=== PATIENT | male | born 1950 | race African-American/Black ===

== ENCOUNTER 2018-01-17 05:38 | Emergency (ER) | payer MEDICARE | END 2018-01-17 06:58 | disposition home or self-care (01) | LOC: ERS 05:38 | DX: H54.7 Unspecified visual loss (principal); I10 Essential (primary) hypertension; F17.210 Nicotine dependence, cigarettes, uncomplicated | CPT/HCPCS: 99283 ==

== ENCOUNTER 2018-06-04 06:01 | Inpatient (IN) | payer MEDICARE ==
[2018-06-04] MEDS ORDERED: Nitroglycerin 2% Ointment 1 INCH/1 GM Packet ONE (06:23)
[2018-06-04 06:43] LABS: #Basophils 0.1 thou/uL (0.0-0.2); #Eosinphils 0.2 thou/uL (0.0-0.7); #Lymphocytes 2.5 thou/uL (1.20-3.40); #Monocytes 0.9 thou/uL (0.11-0.59); #Neutrophils 2.9 thou/uL (1.40-6.50); %Basophils 1.4 % (0.0-1.0); %Eosinophils 2.4 % (0.0-10.0); %Lymphocytes 38.2 % (21.0-51.0); %Monocytes 13.2 % (0.0-10.0); %Neutrophils 44.8 % (42.0-75.0); Hemoglobin 13.4 g/dL (14.0-18.0); Mean Corpuscular HGB CONC 33.9 g/dL (32.0-36.0); Mean Corpuscular Hemoglobin 31.7 pg (27.0-31.0); Mean Corpuscular Volume 93.4 fL (78.0-98.0); Mean Platelet Volume 8.4 fL (7.4-10.4); Platelet Count 300 thou/uL (130-400); RBC Distribution Width 12.2 % (11.5-14.5); Red Blood Cell (RBC) Count 4.25 mill/uL (4.70-6.10); White Blood Cell (WBC) Count 6.4 thou/uL (4.8-10.8)
[2018-06-04] MEDS ORDERED: hydrALAZINE 20 MG/ML VIAL ONE ×2 (06:49→07:56)
[2018-06-04 07:05] LABS: ALT (SGPT) 9 U/L (8-55); AST (SGOT) 14 U/L (5-34); Alkaline Phosphatase 90 U/L (40-150); Anion Gap 12 mmol/L (10-20); BUN (Urea Nitrogen) 19 mg/dL (8.4-25.7); Bilirubin, Total 0.9 mg/dL (0.2-1.2); CK (CPK) 72 U/L (30-200); Calc. Creatinine Clearance 0 mL/min (70-130); Calcium 9.7 mg/dL (7.8-10.44); Carbon Dioxide 26 mmol/L (23-31); Chloride 108 mmol/L (98-107); Estimated GFR-MDRD 72; Globulin 2.7 g/dL (2.4-3.5); Glucose 88 mg/dL (80-115); Lipase 25 U/L (8-78); Protein, Total 6.7 g/dL (5.8-8.1); Sodium 142 mmol/L (136-145)
[2018-06-04 07:07] LABS: Acetaminophen Less than 6.0 mcg/mL (10.0-30.0); Alcohol Less than 10 mg/dL (Less than 10); CKMB 0.6 ng/mL (0-6.6); Salicylate Less than 8.0 mg/dL (15.0-30.0)
--- NOTE | 2018-06-04 07:57 | PDOC.FPRHP ---
- History of Present Illness Chief Complaint: left sided parasthesia/PARTIDA History of Present Illness: This is a 67 yo M who presents to the ED with left sided facial and extremity parasthesias. Patient presented with a BP of 230s/84 and a headache. Patient states his symptoms started at 0300 this morning and have been continuous since. The numbness persisted and began bother him again around 0530 this AM. The patient then drove himself to the ED. He also endorsed feeling numbness on the left lower face and ryne. Patient has been noncompliant with medications, he got tired of taking his bp meds so quit taking them 4-5 months ago. Denies dysarthria, weakness, change in gait, or other stroke like symptoms. Denies numbness in left lower extremity. Patient denies chest pain, fever, NVD, or vision changes. PMH of stroke in 2009 which was treated at [facility]. ED Course: 20mg IV hydralazine, ASA 324mg, topical nitro, 500ml NS - Allergies/Adverse Reactions Allergies Allergy/AdvReac Type Severity Reaction Status Date / Time No Known Allergies Allergy Verified 06/04/18 09:01 - Home Medications Medication Instructions Recorded Confirmed Type Amlodipine [Norvasc] 10 mg PO DAILY #0 tab 02/05/16 06/04/18 Rx Lisinopril [Zestril] 10 mg PO DAILY #0 tab 02/05/16 06/04/18 Rx - History PMHx: HTN, stroke of unknown type in 2009 PSHx: hernia repair (1995), "operation on blood vessel that comes out of my head , from stroke" FHx: none Social: drinks socially, every week; daily marijuana use; "all kinds of shit" as far as drug use in the past, would not specify, tobacco - 50 pack year smoking hx - Review of Systems General: denies: fever/chills, weight/appetite/sleep changes, night sweats, fatigue Eyes: denies: eye pain, vision changes Respiratory: denies: cough, congestion, shortness of breath Cardiovascular: denies: chest pain, palpitation, edema Gastrointestinal: denies: nausea, vomiting, diarrhea, constipation, abdominal pain Genitourinary: denies: incontinence, dysuria, polyuria Skin: denies: rashes Neurological: reports: numbness. denies: syncope, seizure, weakness - Vital signs BP: 184/92 HR: 62 RR: 16 Tmax: 98.6 Pox: 100% on RA Wt: 58.97kg - Physical Exam Constitutional: NAD, awake, alert and oriented HEENT: normocephalic and atraumatic, PERRLA, EOMI, no scleral icterus, grossly normal vision, grossly normal hearing, MMM Neck: supple, FROM, trachea midline Chest: no-tender to palpation, no lesions Heart: RRR, normal S1/S2, no murmurs/rubs/gallops, pulses present, no edema Lungs: CTAB, no respiratory distress, good air movement Abdomen: soft, non-tender, bowel sounds present, no masses/distention Neurological: no focal deficit, CN II-XII intact -Neurological: sensation equal on both sides of the face, equal cork grinder strength bilaterally, mild decrease in strength with flexion of left upper extremity, equal strength at lower extremities lifting off of the bed Skin: no rash/lesions, capillary refill <2 seconds Psychiatric: normal mood and affect, good judgment and insight FMR H&P: Results - Labs Result Diagrams: 06/04/18 06:25 06/04/18 06:25 Lab results: WBC 6.4 thou/uL (4.8-10.8) 06/04/18 06:25 Hgb 13.4 g/dL (14.0-18.0) L 06/04/18 06:25 Hct 39.7 % (42.0-52.0) L 06/04/18 06:25 MCV 93.4 fL (78.0-98.0) 06/04/18 06:25 Plt Count 300 thou/uL (130-400) 06/04/18 06:25 Neutrophils % 44.8 % (42.0-75.0) 06/04/18 06:25 Sodium 142 mmol/L (136-145) 06/04/18 06:25 Potassium 4.0 mmol/L (3.5-5.1) 06/04/18 06:25 Chloride 108 mmol/L (98-107) H 06/04/18 06:25 Carbon Dioxide 26 mmol/L (23-31) 06/04/18 06:25 BUN 19 mg/dL (8.4-25.7) 06/04/18 06:25 Creatinine 1.23 mg/dL (0.7-1.3) 06/04/18 06:25 Glucose 88 mg/dL (80-115) 06/04/18 06:25 Calcium 9.7 mg/dL (7.8-10.44) 06/04/18 06:25 Total Bilirubin 0.9 mg/dL (0.2-1.2) 06/04/18 06:25 AST 14 U/L (5-34) 06/04/18 06:25 ALT 9 U/L (8-55) 06/04/18 06:25 Alkaline Phosphatase 90 U/L (40-150) 06/04/18 06:25 Creatine Kinase 72 U/L (30-200) 06/04/18 06:25 CK-MB (CK-2) 0.6 ng/mL (0-6.6) 06/04/18 06:25 B-Natriuretic Peptide 46.7 pg/mL (0-100) 06/04/18 06:25 Serum Total Protein 6.7 g/dL (5.8-8.1) 06/04/18 06:25 Albumin 4.0 g/dL (3.4-4.8) 06/04/18 06:25 Lipase 25 U/L (8-78) 06/04/18 06:25 FMR H&P: A/P - Problem List (1) Hypertensive urgency Current Visit: Yes Status: Acute Code(s): I16.0 - HYPERTENSIVE URGENCY (2) COPD (chronic obstructive pulmonary disease) Current Visit: No Status: Chronic (3) Hypertension Current Visit: No Status: Chronic Code(s): I10 - ESSENTIAL (PRIMARY) HYPERTENSION (4) Tobacco abuse Current Visit: No Status: Chronic Code(s): Z72.0 - TOBACCO USE - Plan Hypertensive Emergency - on admission in the ED 200+ SBP/ 84; patient given hydralazine in the ED - Will monitor BP and restart home meds of lisinopril and amlodipine - Will add labetalol PRN for SBP > 180 - Will add ASA daily and start a statin - FLP pending for AM - Will obtain MRI brain TIA 2/2 HTN Emergency - see above - Will consider consulting neurology pending MRI HTN - see above COPD - not in acute exacerbation - Will monitor resp status - Duoneb PRN DISPO: admit to stroke, monitor BPs Code: FULL VTE ppx: lovenox Case discussed with Dr. Saldaña FMR H&P: Upper Level - Pertinent history This is a 67yo M who comes in for evaulation of stroke-like symptoms. He states he woke up at three AM with parethesias of the left arm and it persisted until 0530 AM. He states he also felt numb on the L side of his face. Denies any motor or speech deficits. The patient was able to drive himself to the ED. Denies headache. States he had as stroke in 2009 and [facility], he thinks he had some sort of intravascular procedure done but is not quite sure. He has a 50 pack year smoking history and has not taken his BP meds for 5 months because he got tired of it. - Pertinent findings General: NAD, alert and oriented x3 HEENT: PERRLA, EOMI, normal sclera Neck: Supple. Full ROM. Heart/Cardiovascular System: No r/m/g. RRR. Cap refill < 3 seconds, good pulses in all extremities Lungs/Respiratory System: clear to auscultation bilaterally. No increased work of breathing. Room air. Abdomen/Gastro-Intestinal System: non-tender, normal bowel sounds, no masses, no organomegaly Extremeties: Warm extremities. No cyanosis or edema. Neuro: No gross deficits appreciated. CN 2-12 grossly intact. able to lift both legs off the bed. No facial droop or slurred speech. Equal cork grinder strength bilaterally. Slightly decreased strength in flexion of L upper extremity as opposed to the R, still able to flex against resistance. Psychiatry: Awake, Alert and cooperative with exam Skin/ Integumentory: No lesions, rashes, or ulcers - Plan Date/Time: 06/04/18 [id number] IJoshua MD, have evaluated this patient and agree with findings/plan as outlined by internal medicine doctor resident. Pertinent changes/additions are listed here. #HTN Emergency - first bp in 230s systolic - s/p hydralazine in the ED - restarted home meds, lisinopril, amlodipine - will wait to titrate up because patient has not taken them in 4-5 months - labetalol, hydralazine PRN #TIA - tiny rt lacunar infarct noted on MRI - on ASA, statin - echo, carotid doppler pending - Neurology consulted # Hx of COPD Diet: HH DVT PPX: lovenox fluids: none Dispo: 1 day pending neuro recs Addendum - Attending - Attending Attestation Date/Time: 06/04/18 1569 I personally evaluated the patient and discussed the management with Dr. Ponce I agree with the History, Examination, Assessment and Plan documented above with any addition or exceptions noted below.
--- NOTE | 2018-06-04 08:07 | CT ---
NONCONTRAST CT HEAD: DATE: 06/04/2018. HISTORY: Altered mental status, numbness and tingling to face and left arm. COMPARISON: 02/06/2016. FINDINGS: Again noted are areas of decreased attenuation in the periventricular white matter which is again non specific but likely reflective of chronic small-vessel ischemic changes which have not progressed fro m the prior study. There is no evidence of an acute cortical infarction, hemorrhage, mass effect, or midline shift. Low-density area in the left external capsule is also likely attributable to chronic small-vessel ischemic changes and was present on prior exam. There is a cavum septum pellucidum et vergae. Ventricular system is normal in size, shape, and posit ion. Minimal scattered mucosal thickening is seen in the paranasal sinuses. Mastoid air cells are clear. Osseous structures are intact. CT of the head is stable from the prior study. IMPRESSION: 1. No acute intracranial abnormality is demonstrated. 2. Stable mild chronic small-vessel ischemic changes. POS: [facility]
[2018-06-04 08:13] LABS: Medtox Reader # READER 4
[2018-06-04 08:14] LABS: Amphetamine Not Detected (NotDetected); Barbiturates Screen Not Detected (NotDetected); Benzodiazepine Screen Not Detected (NotDetected); Cocaine Metabolite Screen Not Detected (NotDetected); Medtox Control Line Valid? VALID (VALID); Methadone Not Detected (NotDetected); Methamphetamine Not Detected (NotDetected); Opiate Screen Not Detected (NotDetected); Oxycodone Screen Not Detected (NotDetected); Phencyclidine (PCP) Not Detected (NotDetected); THC/Cannabinoid Screen Detected (NotDetected); Tricyclic Screen Not Detected (NotDetected)
[2018-06-04] MEDS ORDERED: hydrALAZINE 20 MG/ML VIAL SLOW IVP PRN (09:17)
--- NOTE | 2018-06-04 10:11 | RAD ---
CHEST ONE VIEW: History: Dyspnea. Comparison: 07-29-11 FINDINGS: Cardiac silhouette is magnified and enlarged. Pulmonary vasculature unremarkable. Mediastinum is midl ine with aortic calcification. No confluent airspace consolidation or evidence of pneumothorax. Cardi ac monitor leads overlie the chest. IMPRESSION: 1. Cardiomegaly, stable. 2. Atherosclerosis. POS: [facility]
[2018-06-04 11:02] LABS: Troponin I Less than 0.010 ng/mL (< 0.028)
[2018-06-04] MEDS ORDERED: Acetaminophen 325 MG TAB PO PRN (14:43)
[2018-06-04 15:00] LABS: Troponin I 0.021 ng/mL (< 0.028)
[2018-06-04] MEDS: Nicotine 21 MG PATCH TD SCH (15:00)
--- NOTE | 2018-06-04 15:20 | MRI ---
NONCONTRAST MRI OF BRAIN: DATE: 06/04/2018. HISTORY: Left-sided weakness. COMPARISON: Noncontrast CT head on 06/04/2018. FINDINGS: There is a punctate focus of restricted diffusion within the right thalamus suggesting an acute tiny lacunar infarction I the right thalamus. No additional acute infarction is visualized. There is inc reased FLAIR and T2 weighted signal intensity in the periventricular white matter which is nonspecifi c but likely reflective of chronic small-vessel ischemic changes. There is a cavum septum pellucidum et vergae which is a normal variant. The ventricular system is no rmal in size, shape, and position for the degree of sulcal atrophy. There is mild cerebral volume lo ss not unexpected for the patient's age. There is motion on the T2 weighted images, but there are grossly appropriate flow voids noted at the base of the brain. There is an increased T2 weighted signal intensity cystic-appearing lesion seen in the subcutaneous s oft tissues adjacent to the most proximal aspect of the right nasal bone. This was also seen on prio r CT exam and also appeared to have been present on the priori CT of the head on 02/06/2016. This is d ifficult to definitively characterize but this could potentially represent a sebaceous cyst. Clinica l correlation is recommended. Minimal mucosal thickening seen in the ethmoidal air cells in each sphenoid sinus. Orbits and skull base have a grossly normal appearance. IMPRESSION: 1. Tiny acute lacunar infection right thalamus. No additional acute infarction is seen. 2. Chronic small-vessel ischemic changes and cerebral volume loss. 3. Subcutaneous cystic-appearing lesion adjacent to the right nasal bone. The exact etiology is unc ertain, but this was present on a prior CT exam on 02/06/2016 and could potentially represent a sebaceo us cyst, but clinical correlation is recommended. 4. Mild sinus disease. 5. Prominent degenerative changes of the visualized upper cervical spine. POS: [facility]
[2018-06-04] MEDS: Atorvastatin Calcium 40 MG TAB PO SCH (20:40)
--- NOTE | 2018-06-04 20:50 | ULT ---
CAROTID ULTRASOUND: 05/25/18 HISTORY: Stroke. COMPARISON: None. TECHNIQUE: Pham scale, color flow, doppler imaging with spectral waveform analysis is performed in the carotid a nd vertebral arteries. FINDINGS: RIGHT CAROTID: There is intimal thickness of the common carotid artery measuring 0.1 cm. There is calcified plaque i n the distal right common carotid artery and carotid bifurcation/proximal internal carotid artery. P eak systolic velocity of the common carotid artery is 150.4 cm/s. Peak systolic velocity of the inter nal carotid artery is 151.5 cm/s. Systolic to ICA and CCA ratio is 1.0. LEFT CAROTID: There is intimal thickness of the common carotid artery measuring 0.14 cm. There is calcified plaque in the left carotid bifurcation. Peak systolic velocity of the common carotid artery is 124.0 cm/s. Peak systolic velocity of the internal carotid artery is 112.1 cm/s. Systolic to ICA and CCA ratio is 0.9. Antegrade flow in both vertebral arteries. IMPRESSION: Elevated velocities involving the right carotid artery suggesting moderate (50-69%) stenosis. Better interrogation with CT angiogram of the neck is recommended. POS: [facility]
[2018-06-05 05:13] LABS: #Eosinphils 0.1 thou/uL (0.0-0.7); #Lymphocytes 1.9 thou/uL (1.20-3.40); #Monocytes 0.8 thou/uL (0.11-0.59); #Neutrophils 4.1 thou/uL (1.40-6.50); %Basophils 0.7 % (0.0-1.0); %Eosinophils 1.4 % (0.0-10.0); %Lymphocytes 27.7 % (21.0-51.0); %Monocytes 11.6 % (0.0-10.0); %Neutrophils 58.6 % (42.0-75.0); Hemoglobin 11.9 g/dL (14.0-18.0); Mean Corpuscular HGB CONC 33.6 g/dL (32.0-36.0); Mean Corpuscular Hemoglobin 31.4 pg (27.0-31.0); Mean Corpuscular Volume 93.4 fL (78.0-98.0); Platelet Count 205 thou/uL (130-400); RBC Distribution Width 12.3 % (11.5-14.5)
[2018-06-05 05:27] LABS: Anion Gap 11 mmol/L (10-20); BUN (Urea Nitrogen) 16 mg/dL (8.4-25.7); Calc. Creatinine Clearance 59 mL/min (70-130); Calcium 9.2 mg/dL (7.8-10.44); Carbon Dioxide 24 mmol/L (23-31); Chloride 108 mmol/L (98-107); Cholesterol 211 mg/dl (< 200 Desired); Estimated GFR-MDRD 87; Glucose 78 mg/dL (80-115); HDL Cholesterol 70 mg/dL (>60 Neg Risk); LDL Cholesterol, Calculated 131 mg/dL; Sodium 139 mmol/L (136-145); Triglycerides 48 mg/dL (Less than 150)
--- NOTE | 2018-06-05 06:18 | PDOC.FM ---
Addendum entered and electronically signed by Dania Ponce MD 06/05/18 07:55 : Will restart lisinopril and amlodipine on 06/06 and have PRNs available. Original Note: - Subjective Subjective: No events overnight. Patient has no complaints or concerns this morning. No recurrence of paresthesias. Informed patient of MRI and patient acknowledged understanding. Patient denies numbness, SOB, chest pain, palpitations, weakness or vision changes. - Objective Vital Signs & Weight: Vital Signs (12 hours) Temp Pulse Resp BP Pulse Ox 06/05/18 03:17 98.9 F 72 16 154/87 H 98 06/04/18 23:37 98.9 F 70 16 141/84 H 98 06/04/18 19:10 98.7 F 69 18 165/84 H 98 Weight Weight 58.776 kg I&O: 06/03/18 06/04/18 06/05/18 06:59 06:59 06:59 Intake Total 960 Balance 960 Result Diagrams: 06/05/18 04:15 06/05/18 04:15 Phys Exam - Physical Examination Constitutional: NAD HEENT: PERRLA, moist MMs, sclera anicteric Neck: no JVD, supple, full ROM Respiratory: clear to auscultation bilateral Cardiovascular: RRR, no significant murmur, no rub Gastrointestinal: soft, non-tender, no distention, positive bowel sounds Musculoskeletal: no edema Neurological: non-focal, normal sensation, moves all 4 limbs Psychiatric: normal affect, A&O x 3 Skin: no rash Dx/Plan (1) CVA (cerebral vascular accident) Code(s): I63.9 - CEREBRAL INFARCTION, UNSPECIFIED Status: Acute (2) Hypertensive urgency Code(s): I16.0 - HYPERTENSIVE URGENCY Status: Acute (3) COPD (chronic obstructive pulmonary disease) Status: Chronic (4) Hypertension Code(s): I10 - ESSENTIAL (PRIMARY) HYPERTENSION Status: Chronic (5) Tobacco abuse Code(s): Z72.0 - TOBACCO USE Status: Chronic - Plan Plan: Hypertensive Emergency - on admission in the ED 200+ SBP/ 84; patient given hydralazine in the ED - BPs improved; ranging 141-165/80-90s - Will monitor BP and restart home meds of lisinopril and amlodipine - Will add labetalol/hydralazine PRN for SBP > 180 - ASA and statin daily - cholesterol: 211, HDL 70, LDL 13; ASCVD risk 23% - Will obtain MRI brain CVA 2/2 HTN Emergency - MRI showed small lacunar infarct right thalamus; sebaceous cyst next to right nasal bone - Doppler showed intimal thickness in both the left and right carotids; Will obtain CTA of head and neck - Neurology consulted; appreciate recs - see above for additional plans HTN - see above COPD - not in acute exacerbation - Will monitor resp status - Duoneb PRN DISPO: admit to stroke, monitor BPs Code: chem only - no CPR or intubation VTE ppx: lovenox Addendum - Attending - Attending Attestation Date/Time: 06/05/18 1151 I personally evaluated the patient and discussed the management with Dr. Ponce I agree with the History, Examination, Assessment and Plan documented above with any addition or exceptions noted below. MRI finding cyst not new finding appears stable, lacunar infarct noted Restarted lisinopril permissive HTN and consult with Vascular Surgery regard carotid artery stenosis.
[2018-06-05] MEDS: Labetalol HCl 100 MG/20 ML VIAL SLOW IVP PRN ×3 (07:54→16:22)
[2018-06-05] MEDS ORDERED: Lisinopril 10 MG TAB PO SCH ×3 (09:00→19:15)
[2018-06-05] MEDS ORDERED: Amlodipine 10 MG TAB PO SCH ×2 (09:00→17:30)
[2018-06-05] MEDS: Enoxaparin Sodium 30 MG/0.3 ML SYRINGE SC SCH (09:33)
[2018-06-05] MEDS: Aspirin 325 mg Enteric Coated Tablet PO SCH (09:33)
--- NOTE | 2018-06-05 10:26 | CT ---
CT ARTERIOGRAM NECK WITH IV CONTRAST AND 3D MIP IMAGING CT ARTERIOGRAM HEAD WITH IV COTNRAST AND 3D MIP IMAGING CT BRAIN WITH AND WITHOUT IV COTNRAST: HISTORY: CVA. Abnormal sonogram. Vascular disease. FINDINGS: There is no evidence of acute intracranial hemorrhage or infarct. Large cavum septum pellucidum is a gain demonstrated. Projecting leftward from the anterior falx is a mostly calcified 0.7 cm rounded lesion slightly effac ing the medial aspect of the left frontal lobe. This has the appearance of a small hemangioma and is stable on exams dating back to 2011. Chronic ischemic small-vessel disease is also stable. No abno rmal areas of intracranial contrast enhancement. Fatty lesion at the bridge of the nose is partially visualized. Normal branching of the great vessels at the aortic arch. Moderate calcification. Good flow into ea ch carotid and vertebral system. On the right, there is calcified and noncalcified plaque at the carotid bifurcation. Focal narrowing at the origin of the right internal carotid artery results in stenosis estimated at 70%. Good flow distally. Intracranial arterial calcification. On the left, there is calcified and noncalcified plaque without significant carotid stenosis. Good flow intracranially into each cerebral and cerebellar system. IMPRESSION: 1. Atherosclerosis. Stenosis at the origin of the right internal carotid artery is estimated at 70% . 2. Chronic-type intracranial findings are stable. POS: [facility]
--- NOTE | 2018-06-05 13:14 | CON ---
DATE OF CONSULTATION: 06/05/2018 HISTORY OF PRESENT ILLNESS: Mr. Dixon is a 67-year-old gentleman who has chronic longstanding hypertension. He quit taking his blood pressure medicine and presented to the emergency room with a blood pressure in the 230s/80s. He had a headache. He also noted some tingling in his left hand and left lip. As part of his workup, he had a carotid ultrasound performed, which showed a right carotid peak systolic velocity in the 150 range. It was recommended that he have a CT angiogram performed, which they did. The radiologist's read is at 70% stenosis at the origin of the right internal carotid artery. By my measurements, it measures approximately 50%. On MRI of his brain, he has right thalamic punctate infarct. Currently, he is resting comfortably in bed. His symptoms have completely resolved with control of his blood pressure. PAST MEDICAL HISTORY: 1. Hypertension. 2. History of stroke in 2009, which was managed at [facility]. He says he had some sort of problem with a blood vessel in his head that was operated on. PAST SURGICAL HISTORY: 1. The above surgical procedure to his blood vessel in his head - this is unclear. 2. Hernia repair x2. SOCIAL HISTORY: He drinks socially. He uses marijuana every day. He smokes a pack of cigarettes a day. REVIEW OF SYSTEMS: A 10-point review of systems is performed, is negative except as above. PHYSICAL EXAMINATION: GENERAL: This is a well-developed, well-nourished male, resting comfortably in bed. VITAL SIGNS: Height 5 feet 3 inches, weight is 129 pounds, BSA is 1.62, temperature is 98.4, pulse is 63, blood pressure is 194/95. HEENT: Sclerae nonicteric. Pupils are equal, round bilaterally. NECK: Supple. He has soft bilateral carotid bruit. CHEST: Clear bilaterally. HEART: Rhythm is regular without murmur. ABDOMEN: Soft and nontender with no masses. EXTREMITIES: No edema. ASSESSMENT AND PLAN: A 67-year-old gentleman with a punctate infarct of his right thalamus. Symptoms have resolved. Ultrasound is consistent with a 50% to 69% stenosis. He has approximately a 50% stenosis by my measurement on the CT angiogram. I would recommend that he take an aspirin daily. He needs to stay on his blood pressure medicines and try to keep his blood pressure better controlled. I will see him back in the office in about 6 months and re-ultrasound his neck at that time. If he progresses, we can certainly offer him carotid endarterectomy in the future. Job ID: [id number]
[2018-06-05] MEDS: Nicotine 21 MG PATCH TD SCH (16:22)
[2018-06-05] MEDS ORDERED: hydrALAZINE 20 MG/ML VIAL SLOW IVP SCH (19:15)
[2018-06-05] MEDS: Atorvastatin Calcium 40 MG TAB PO SCH (20:11)
--- NOTE | 2018-06-05 20:17 | CON ---
DATE OF CONSULTATION: 06-05-18 CHIEF COMPLAINT: New onset CVA. HISTORY OF PRESENTING ILLNESS: The patient is a very pleasant 67-year-old man, who reports he stopped his blood pressure medications recently about 3 to 4 months ago, and he noted he developed the sudden onset numbness in the bottom of his left thumb and came quickly to the emergency room because he wanted to make sure he did not have a stroke. He did not experience dizziness or weakness or any other symptoms such as dysarthria or diplopia. No loss of consciousness or seizures were reported. No weakness was reported. PAST MEDICAL HISTORY: The patient has known hypertension and is supposed to be on lisinopril and amlodipine, which he discontinued about 3 to 4 months ago. The patient did have a previous history of stroke in 2009. He states he was admitted to the hospital and had some kind of surgery for blood vessel within the brain and it was not a carotid surgery. PAST SURGICAL HISTORY: The patient had hernia repair in 1995 and 2017 and his blood vessel surgery within the brain about 8 years ago. FAMILY HISTORY: Mother of a CVA at age 49. Father in his 70s from diabetes. He has 7 siblings, only 4 are alive. One sister from cancer, one sister from overdose of medications, and one sister had a brain aneurysm at age 56, but she is still alive. SOCIAL HISTORY: He is a smoker. He used drugs in the past. He smokes weed occasionally even now. He has occasional beer or whiskey, but not a regular alcoholic currently. REVIEW OF SYSTEMS: PULMONARY: Negative for any shortness of breath. GENERAL: Negative for any weight loss or weight gain. There was no fatigue. ENT: No hearing problems. OPHTHALMOLOGIC: Negative for any vision changes. CARDIOVASCULAR: No chest pain or palpitations. GASTROINTESTINAL: Negative for any diarrhea, constipation, or abdominal pain. GENITOURINARY: Negative for any bladder problem. SKIN: Negative for any rash or skin itching. NEUROLOGIC: Positive for numbness in the thumb area. LABORATORY DATA: Laboratory workup: He has a white count 7.0, hematocrit 35.5, hemoglobin 11.9, platelets 205. Chemistry; sodium 139, potassium 4.0, chloride 108, BUN is 16, creatinine 1.04, bicarb 24. Cholesterol 211, triglycerides 48, LDL 131, HDL 70, heart disease risk ratio 3. MRI of the brain showed an acute infarct in the right thalamus and it is a lacunar infarct. He has chronic small vessel ischemic changes and cerebral volume loss. Subcutaneous cystic appearing lesion adjacent to the right nasal bone and this could be more of a sebaceous cyst, and carotid Doppler study was completed and his Doppler showed elevated velocities in the right carotid artery indicating moderate 50% to 69% stenosis, and a CTA of the [place] of [place] showed no evidence of intracranial hemorrhage or infarct, and he has atherosclerosis projecting leftward from the anterior falx is a classified 0.7 mm lesion in the left frontal lobe appearing to be a small hemangioma and is stable since 2012. On the right, there is a calcified and noncalcified plaque of the carotid bifurcation, so he has a stenosis of the origin of the right ICA estimated at 70% and echocardiogram was also completed. His echocardiogram result shows EF of 45% to 50% and moderate concentric left ventricular hypertrophy. PHYSICAL EXAMINATION: VITAL SIGNS: Blood pressure was 194/95, pulse is 63, temperature 98.4, respiratory rate 16, and O2 sats 98%. GENERAL APPEARANCE: Well-built, well-nourished gentleman, appears comfortable. CHEST: Clear vesicular breathing. CARDIOVASCULAR: S1 and S2 heard. No murmurs. ABDOMEN: Soft and nontender. No organomegaly noted. NEUROLOGIC: Motor; bulk, normal and tone, normal. Strength 5/5 in upper and lower extremities. Higher intellectual functions; the patient is alert and oriented to time, place, and person, has appropriate conversation. Cranial nerves 2 through 12 normal except for left facial droop, which is very mild. Normal extraocular movements. Pupils are reactive and symmetric bilaterally. Normal sensation of face bilaterally and normal hearing to finger rub bilaterally. Tongue midline. No atrophy noted. Normal elevation of palate. Motor examination; bulk normal and tone normal. Strength 5/5 in upper and lower extremities in iliopsoas, hamstrings, quadriceps, ankle dorsiflexion, plantar flexion, deltoid, biceps, triceps, wrist extension, flexion, finger extension and flexion bilaterally. Sensory examination; normal to touch and proprioception. Cerebellar; normal [id number] and [id number]. Deep tendon reflexes were 2+ and no pronator drift was noted. Gait not tested. IMPRESSION: The patient is a 67-year-old man with right thalamic acute infarct likely due to hypertension. He has stopped taking his antihypertensive for the last 3 to 4 months. His current neurological examination is normal. 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 This needs to be evaluated further. RECOMMENDATIONS: Aspirin for stroke prophylaxis. Please consult Vascular Surgery for his carotid occlusion and call Neurology if you have any further questions. Job ID: [id number] MTDD
--- NOTE | 2018-06-06 06:29 | PDOC.FM ---
- Subjective Subjective: No events overnight. Patient reports feeling well this morning and ready to go home. Patient endorses numbness in the right thumb but denies numbness in the rest of the hand, arm or face. Denies any other stroke like symptoms. Denies chest pain, abdominal pain, NVD, LE swelling. - Objective Vital Signs & Weight: Vital Signs (12 hours) Temp Pulse Resp BP BP Pulse Ox 06/06/18 04:44 98.1 F 71 16 138/79 96 06/05/18 23:58 98.5 F 70 20 141/73 H 95 06/05/18 22:15 137/68 06/05/18 20:11 61 191/89 H 06/05/18 20:10 95 06/05/18 19:49 98.7 F 64 16 191/89 H 97 Weight Weight 58.776 kg I&O: 06/04/18 06/05/18 06/06/18 06:59 06:59 06:59 Intake Total 960 Balance 960 Result Diagrams: 06/05/18 04:15 06/05/18 04:15 Phys Exam - Physical Examination Constitutional: NAD HEENT: PERRLA, moist MMs, sclera anicteric Neck: full ROM Respiratory: clear to auscultation bilateral Cardiovascular: RRR, no significant murmur, no rub Gastrointestinal: soft, non-tender, no distention, positive bowel sounds Musculoskeletal: no edema Neurological: non-focal, moves all 4 limbs left > right thumb sensation Psychiatric: normal affect, A&O x 3 Skin: no rash Dx/Plan (1) CVA (cerebral vascular accident) Code(s): I63.9 - CEREBRAL INFARCTION, UNSPECIFIED Status: Acute (2) Hypertensive urgency Code(s): I16.0 - HYPERTENSIVE URGENCY Status: Acute (3) COPD (chronic obstructive pulmonary disease) Status: Chronic (4) Hypertension Code(s): I10 - ESSENTIAL (PRIMARY) HYPERTENSION Status: Chronic (5) Tobacco abuse Code(s): Z72.0 - TOBACCO USE Status: Chronic - Plan Plan: Hypertensive Emergency - on admission in the ED 200+ SBP/ 84; patient given hydralazine in the ED - BPs improved; ranging 138-141/70s this AM; overnight had some elevated BPs and was given labetalol and increased lisinopril dose. - Will monitor BP. Will start lisinopril at increased dosage. Will hold home amlodipine for now. - Will add labetalol PRN for SBP > 180 - ASA and statin daily - cholesterol: 211, HDL 70, LDL 13; ASCVD risk 23% CVA 2/2 HTN Emergency - MRI showed small lacunar infarct right thalamus; sebaceous cyst next to right nasal bone - Doppler showed intimal thickness in both the left and right carotids - CTA head and neck showed stenosis of 70% on the right; CV surg consulted at that point. CV surg reviewd CTA head/neck and measured stenosis to be 50% and the patient will have f/u exam in 6 months outpatient w/ CV surg. Appreciate recs. - Neurology consulted; appreciate recs. HFrEF & diastolic dysfxn, not present on admission - Echo on 06/05: EF 45-50%, LVH, diastolic dysfxn, mild MR/TR - Will add coreg to regimen - Will consider cardiology consult HTN - see above COPD - not in acute exacerbation - Will monitor resp status - Duoneb PRN DISPO: likely discharge 1-2 days w/ close outpatient CV surg follow up Code: chem only - no CPR or intubation VTE ppx: lovenox Addendum - Attending - Attending Attestation Date/Time: 06/06/18 1640 I personally evaluated the patient and discussed the management with Dr. Ponce I agree with the History, Examination, Assessment and Plan documented above with any addition or exceptions noted below. Stable home with statin, BB(coreg), ACEI,ASA patient advised to stop smoking tobacco and marijuana he is still pre contempative about this but endorses health risks. Establish PCP with out service.
[2018-06-06] MEDS ORDERED: Carvedilol 3.125 MG TAB PO SCH (08:00)
[2018-06-06] MEDS: Aspirin 325 mg Enteric Coated Tablet PO SCH (08:25)
[2018-06-06] MEDS: Enoxaparin Sodium 30 MG/0.3 ML SYRINGE SC SCH (08:26)
[2018-06-06] MEDS ORDERED: Lisinopril 20 MG TAB PO SCH (09:00)
[2018-06-06] MEDS ORDERED: Lisinopril 10 MG TAB PO SCH (09:00)
[2018-06-06] MEDS ORDERED: Amlodipine 10 MG TAB PO SCH (09:00)
[2018-06-06] MEDS: Nicotine 21 MG PATCH TD SCH (14:45)
--- NOTE | 2018-06-06 15:02 | CON ---
DATE OF CONSULTATION: 06/06/2018 TYPE OF CONSULTATION: Cardiology. REASON FOR CONSULTATION: Acute CVA. HISTORY OF PRESENT ILLNESS: Mr. Dixon is a pleasant 67-year-old gentleman, who comes to the hospital for symptoms concerning for an acute CVA. He was evaluated and actually found to have an acute right thalamic infarct. He had stopped his blood pressure medications for about 3 to 4 months and had very high blood pressures. He had an ultrasound of the neck that showed velocities on the right carotid in the moderate range suggestive of 50% to 69% stenosis. He was seen by Dr. Mondragon for this and I agree with the evaluation, this suggests moderate disease and needs to be followed up, but not the reason for his acute CVA. He had an echocardiogram that showed an EF of 45% to 50%, which may also be just hypertensive in nature as he has moderate LVH and diastolic dysfunction. Cardiology has been consulted to evaluate this LV dysfunction. PAST MEDICAL HISTORY: 1. Hypertension. 2. History of CVA in 2009. PAST SURGICAL HISTORY: 1. Hernia repair in 1995. 2. Had some type of surgeries secondary to the stroke in 2009. OUTPATIENT MEDICATIONS: Include; 1. Amlodipine 10 mg a day. 2. Lisinopril 10 mg a day. ALLERGIES: NO KNOWN DRUG ALLERGIES. FAMILY HISTORY: No early coronary artery disease. SOCIAL HISTORY: Social alcohol use. Daily marijuana use. He states he uses all sorts of things as far as drug use, but he would not specify and he has a 50 pack year history of smoking. REVIEW OF SYSTEMS: A 12-point review of systems was done and was found to be negative unless stated in the history of present illness. PHYSICAL EXAMINATION: VITAL SIGNS: Blood pressure 184/92, heart rate 62, respiratory rate 16, saturation 100% on room air, and temperature 98.6. GENERAL: Awake, alert, and oriented x3, in no distress. HEENT: Normocephalic and atraumatic. NECK: Supple. LUNGS: Clear. EXTREMITIES: No edema. SKIN: Warm and dry. CARDIOVASCULAR: S1 and S2. No S3 or S4. No murmurs. ABDOMEN: Soft. Positive bowel sounds. LABORATORY DATA: Laboratory work was reviewed. CBC, chemistries, and toxicology were all reviewed. Cannabis detected. Cholesterol is 211, LDL of 131, and HDL of 70. Imaging was reviewed. Echo was reviewed. EF at 45% to 50% with mild LVH and diastolic dysfunction. ASSESSMENT: 1. Acute cerebrovascular accident. 2. Hypertension, poorly controlled. 3. Noncompliance. 4. Substance abuse. PLAN: 1. At this time, his acute CVA is most likely related to poorly controlled hypertension and drug use. He would like to be sent home today, he is not interested in any inpatient procedures, probably consisted New Year's, I would offer him a followup in 1 month and if he were to follow up, he will need a LINQ implantable loop recorder to assess for cryptogenic stroke. He would also would need a stress test to evaluate for ischemia. 2. I agree with adding beta kandi to his regimen. Coreg would be the better choice as it is nonselective and he may have some cocaine use as well that we do not know. 3. Would up titrate his KAMALA inhibitor as well to control his blood pressure better. 4. Thank you for letting me to participate in the care of your patient. We will follow along with you. 5. No contraindication to discharge, he may be discharged today from the cardiac perspective, follow up in 1 month as above. Job ID: [id number]
[2018-06-06 16:10] VITALS: BP 148/88; TEMP 98.6
[2018-06-07] MEDS ORDERED: Aspirin 81 mg Enteric Coated Tablet PO SCH (09:00)
--- NOTE | 2018-06-07 10:08 | DIS ---
DATE OF ADMISSION: 06/05/2018 DATE OF DISCHARGE: 06/06/2018 RESIDENT: Dania Ponce MD ADMITTING ATTENDING: Jordan Saldaña MD DISCHARGE ATTENDING: Jordan Saldaña MD CONSULTS: Case Management, Cardiology, Cardiovascular Surgery, Neurology, Cardiac Rehab, Stroke Team, Walking Program. PROCEDURES: None. PRIMARY DIAGNOSES: Hypertensive emergency, right thalamus infarct SECONDARY DIAGNOSES: Heart failure with reduced ejection fraction and diastolic dysfunction, hypertension, chronic obstructive pulmonary disease, hx of drug use , tobacco use. DISCHARGE MEDICATIONS: 1. Aspirin 81 mg oral daily. 2. Lipitor 40 mg oral at bedtime. 3. Coreg 3.125 mg oral twice daily with meals. 4. Lisinopril 30 mg oral daily. DISCONTINUED MEDICATIONS: 1. Lisinopril 10 mg oral daily. 2. Amlodipine 10 mg oral daily. HISTORY OF PRESENT ILLNESS/HOSPITAL COURSE: This is a 67-year-old male who presented to the Emergency Department with left-sided facial and upper extremity paresthesias. The patient came in with a blood pressure in the 230s over 80s and headache. The patient stated that the numbness woke him up throughout the night, and he drove himself to the Emergency Department. The patient reports that he had previously been on several antihypertensive medications, but had stopped taking them 4 to 5 months ago. The patient denied left lower extremity numbness , change in gait, weakness, or other stroke-like symptoms. The patient has a past medical history of a stroke in 2009, for which he was treated at [facility]. In the Emergency Department, the patient was given 20 mg IV hydralazine, 324 mg aspirin, topical nitroglycerin, and normal saline. The patient was admitted to the Stroke Unit and worked up for his symptoms. The patient was found to have a right thalamus infarct on brain MRI. The patient also underwent CTA of the head and neck, which showed a 70% stenosis of the right internal carotid artery. At this time, CV Surgery was consulted. Dr. Mondragon evaluated the imaging and stated it was more like 50% with his measurements. Dr. Mondragon discussed this with the patient. He was to follow with him in 6 months for a repeat imaging of the right internal carotid. At that time, Dr. Mondragon will decide if patient needs an endarterectomy. An echocardiogram was done on June 05, 2018, which showed an ejection fraction of 45% to 50%, moderate concentric left ventricular hypertrophy, as well as diastolic dysfunction. Cardiology was consulted and the patient was seen by Dr. Turner. Dr. Turner agreed with adding Coreg on the patient's regimen as well as maintaining his blood pressure with lisinopril. Dr. Turner discussed with the patient to follow up with him in 1 month's time for an implantable loop recorder to assess for cryptogenic stroke. As well, the patient will also need a stress test to evaluate for ischemia. Neurology was also consulted and their recommendation was to start the patient on aspirin and statin. Discussed with the patient smoking cessation and cessation of drug use. The patient acknowledged understanding and stated that he will be compliant with his medications as well as decreased cigarette use. DISPOSITION: Stable. DISCHARGE INSTRUCTIONS: 1. Location: Home. 2. Activity: Ad ryne. 3. Diet: Regular. 4. Followup: With PCP within 1 week, with Dr. Turner of Cardiology in 1 month, and with Dr. Mondragon of CV Surgery in 6 months. Job ID: [id number] MTDD
== END 2018-06-06 16:40 | disposition home or self-care (01) | DRG 64 ==
LOC: ERS 06:01 → 2SE 08:41 → OBSVTOIN 06-05 07:52
PROVIDERS: ADMIT Family Medicine; ATTEND Family Medicine
DX: I63.9 Cerebral infarction, unspecified (principal); I50.21 Acute systolic (congestive) heart failure; J44.9 Chronic obstructive pulmonary disease, unspecified; I16.0 Hypertensive urgency; Z72.0 Tobacco use; I11.0 Hypertensive heart disease with heart failure
CPT/HCPCS: 36415; 70450; 70496; 70498; 70551; 71045; 80048; 80053; 80061; 80306; 80307; 82550; 82553; 83690; 83880; 84443; 84484; 85025; 90471; 90662; 93005; 93306; 93880; 96374; 96376; G0008; G8978-GP-CL; G8979-GP-CL; G8980-GP-CL; G8987-GO-CJ; G8988-GO-CJ; G8989-GO-CJ; G8996-GN-CH; G8997-GN-CH; J0360; J1650

== ENCOUNTER 2018-07-03 20:09 | Inpatient (IN) | payer MEDICARE ==
[~2018-07-03 20:09] MED LIST: ISOVUE-370 76%-LOCM 1 ML ONE
[2018-07-03 21:01] LABS: Hemoglobin 13.1 g/dL (14.0-18.0); Lymphocytes 33 % (21-51); MDiff Complete? YES; Mean Corpuscular Hemoglobin 31.5 pg (27.0-31.0); Mean Corpuscular Volume 95.4 fL (78.0-98.0); Mean Platelet Volume 8.5 fL (7.4-10.4); Monocytes 17 % (0-10); Neutrophil 50 % (42-75); Platelet Count 256 thou/uL (130-400); Platelet Morphology Comment Appears Adequate; RBC Distribution Width 12.3 % (11.5-14.5); Red Blood Cell (RBC) Count 4.17 mill/uL (4.70-6.10); White Blood Cell (WBC) Count 5.8 thou/uL (4.8-10.8)
[2018-07-03 21:10] LABS: ALT (SGPT) 10 U/L (8-55); AST (SGOT) 18 U/L (5-34); Albumin 4.2 g/dL (3.4-4.8); Alkaline Phosphatase 97 U/L (40-150); Anion Gap 13 mmol/L (10-20); BUN (Urea Nitrogen) 18 mg/dL (8.4-25.7); Bilirubin, Total 0.9 mg/dL (0.2-1.2); Calc. Creatinine Clearance 0 mL/min (70-130); Calcium 9.8 mg/dL (7.8-10.44); Carbon Dioxide 25 mmol/L (23-31); Chloride 108 mmol/L (98-107); Estimated GFR-MDRD 79; Glucose 84 mg/dL (80-115); Potassium 3.8 mmol/L (3.5-5.1); Protein, Total 7.2 g/dL (5.8-8.1); Sodium 142 mmol/L (136-145)
[2018-07-03] MEDS ORDERED: niCARdipine 20MG In NaCl 0 MG/0 ML BAG ONE (21:31)
--- NOTE | 2018-07-03 22:19 | CT ---
CT BRAIN NONCONTRAST: DATE: 07-03-18 TIME: 8:40 P.M. HISTORY: 67-year-old male with headache, left upper extremity weakness, left sided facial droop. COMPARISON: CT 06-04-18 This acute stroke alert protocol report was called from Dr. Lazar [facility] at 8:48 p.m. on 07-03-18. FINDINGS: No acute intraaxial or extraaxial hemorrhage, mass effect, midline shift, obstructive hydrocephalus, extraaxial fluid collection, or acute calvarial fracture. Small old right frontal alcira hole, deep to which there is a linear tract of right frontal lobe encephalomalacia and gliosis that leads to the fr ontal horn of the right lateral ventricle. There are moderate chronic ischemic white matter changes in the bilateral cerebral white matter. No o bvious large cortical infarction is visualized. Cavum septi pellucidi and cavum vergae. No interval c hange overall. IMPRESSION: 1. No acute intracranial findings. 2. Tract from previously removed right frontal ventriculostomy catheter. 3. Chronic ischemic white matter changes due to microvascular atherosclerosis. ANGELA Morton POS: LAMAR
[2018-07-03] MEDS ORDERED: Aspirin Chewable 81 MG TAB ONE (22:26)
[2018-07-03] MEDS ORDERED: hydrALAZINE 20 MG/ML VIAL ONE (22:27)
--- NOTE | 2018-07-03 22:48 | CT ---
CT ANGIOGRAM HEAD WITH CONTRAST CT ANGIOGRAM NECK WITH CONTRAST: DATE: 07-03-18 TIME: 8:44 P.M. HISTORY: 67-year-old male undergoing acute stroke symptoms. Left upper extremity weakness and left sided facia l droop with headache. Dr. Lazar verbally gave this level II stroke alert protocol report to Dr. Wilson on the [facility] at 9:05 p.m. on 07-03-18. TECHNIQUE: IV contrast injection. Arterial bolus chasing technique scan performed from [place] to vertex of head. Sagittal and coronal 3D MIP reconstructions. FINDINGS: Bilateral upper lobe numerous small pulmonary bullae and blebs. Asymmetric diffuse soft tissue thicke pedro luis of larynx including true and false vocal cords and bilateral aryepiglottic folds. Asymmetric sev ere effacement of the left pyriform sinus. The appearance is similar to the previous CT angiogram of 06-05-18. Aortic arch: No aneurysm or stenosis. Brachiocephalic: No stenosis. Right subclavian: Distal portion obscured by streak artifact from adjacent dense contrast bolus mater ial in right subclavian vein. Proximal and mid portions of normal caliber. Right common carotid: Origin obscured by the above mentioned streak artifact. Rest of vessel normal c aliber. Right internal carotid: Heavily calcified plaque at origin at carotid bulb causing an estimated 50-70 % stenosis. The rest of the cervical LETICIA is of normal caliber. Left subclavian: No stenosis. Left common carotid: No stenosis. Left internal carotid: Moderate calcified plaque at origin at bulb with mild stenosis. Rest of cervic al LICA is normal in caliber. Probable mild stenosis at origins of bilateral vertebral arteries. Otherwise normal caliber bilateral cervical co-dominant vertebral arteries. Carotid siphons: Moderately calcified plaque without convincing evidence of high grade stenosis. M1 s egments of bilateral middle cerebral arteries are patent with no stenosis, thrombosis or occlusion. Basilar artery, bilateral posterior cerebral arteries, and bilateral superior cerebellar arteries are patent. No intracranial aneurysm identified. origin or left posterior cerebral artery. There is diffuse osseous enlargement of all vertebral bodies throughout the cervical spine contiguous with bulky anterior bridging osteophytes encroaching upon the prevertebral space. IMPRESSION: 1. Atherosclerotic plaque causing approximately 50-70% stenosis at origin of right internal carotid a rtery. 2. No other potentially hemodynamically significant stenosis identified anywhere else. 3. DISH (Diffuse idiopathic skeletal hyperostosis) of the cervical spine. 4. Asymmetry of the larynx. Recommend direct visualization by otolaryngology. 5. No interval change overall since 06-05-18. 6. Paraseptal emphysema. POS: JIN
[2018-07-04 01:03] VITALS: BMI 23.1
[2018-07-04] MEDS ORDERED: Bisacodyl 5 MG TAB PO PRN (01:21)
[2018-07-04] MEDS ORDERED: Senokot S 8.6-50 MG TAB PO PRN (01:21)
[2018-07-04] MEDS ORDERED: Nitroglycerin 0.4 MG TAB (25 Tab Bottle) SL SCH (01:30)
[2018-07-04] MEDS ORDERED: Lisinopril 20 MG TAB PO SCH (01:30)
[2018-07-04] MEDS: Acetaminophen 325 MG TAB PO PRN ×2 (01:46→08:23)
[2018-07-04 06:32] LABS: Anion Gap 15 mmol/L (10-20); BUN (Urea Nitrogen) 14 mg/dL (8.4-25.7); Calc. Creatinine Clearance 70 mL/min (70-130); Carbon Dioxide 20 mmol/L (23-31); Chloride 109 mmol/L (98-107); Estimated GFR-MDRD Greater than 90; Glucose 74 mg/dL (80-115); Potassium 3.5 mmol/L (3.5-5.1); Sodium 140 mmol/L (136-145)
[2018-07-04 06:42] LABS: Eosinophils 3 % (0-10); Hemoglobin 12.3 g/dL (14.0-18.0); Lymphocytes 23 % (21-51); MDiff Complete? YES; Mean Corpuscular HGB CONC 33.2 g/dL (32.0-36.0); Mean Corpuscular Hemoglobin 31.4 pg (27.0-31.0); Mean Corpuscular Volume 94.5 fL (78.0-98.0); Mean Platelet Volume 8.2 fL (7.4-10.4); Monocytes 15 % (0-10); Neutrophil 59 % (42-75); Platelet Count 235 thou/uL (130-400); Platelet Morphology Comment Appears Adequate; RBC Distribution Width 12.3 % (11.5-14.5); Red Blood Cell (RBC) Count 3.93 mill/uL (4.70-6.10); White Blood Cell (WBC) Count 5.6 thou/uL (4.8-10.8)
[2018-07-04] MEDS: Aspirin 81 mg Enteric Coated Tablet PO SCH (08:23)
[2018-07-04] MEDS: Lisinopril 20 MG TAB PO SCH (08:23)
[2018-07-04] MEDS: Heparin 5,000 UNITS/ML VIAL SC SCH ×3 (08:23→20:25)
[2018-07-04] MEDS: Carvedilol 3.125 MG TAB PO SCH ×2 (08:23→16:08)
[2018-07-04] MEDS ORDERED: Non-Formulary Item 1 EACH (Lisinopril [Zestril] 40 MG) PO SCH (09:00)
[2018-07-04] MEDS: hydrALAZINE 20 MG/ML VIAL SLOW IVP PRN ×2 (16:08→20:25)
--- NOTE | 2018-07-04 17:22 | HP ---
PRIMARY CARE PHYSICIAN: Erica Harden MD CHIEF COMPLAINT: Headache, elevated blood pressure, and left-sided weakness. HISTORY OF PRESENT ILLNESS: Mr. Dixon is a pleasant 67-year-old male with past medical history of CVA 1 month before, elevated blood pressure, COPD, hypertension, and tobacco and marijuana use, who had reported to [facility] late last night with a headache on the right side of his head and an elevated blood pressure and that has been going on for the last 2 to 3 days. He states he had recently seen his primary care physician, Dr. Erica Harden last week, he states he had his lisinopril dose increased to 40 mg daily. He was recently admitted about 1 month ago for an acute CVA, he was started on atorvastatin, carvedilol, and lisinopril at that time for his blood pressure. He also continues on aspirin daily. During his initial workup, CTA was obtained and showed no acute intracranial findings, CTA of head showed no change overall since 06/05/2018. He is with carotid stenosis of about 70% on the right internal carotid artery, which was seen on last imaging. He had denied any fever or chills. Denies any dizziness, chest pain, shortness of breath, or abdominal pain. In the Emergency Department, he had received a dose of IV hydralazine 10 mg, which had improved his initial blood pressure. He had also reported that his headache improved as well. He was admitted overnight for observation and further workup of the symptoms. REVIEW OF SYSTEMS: All other systems reviewed and are negative unless mentioned in the HPI. PAST MEDICAL HISTORY: Positive for CVA, hypertension, hyperlipidemia, COPD, and diastolic heart failure. PAST SURGICAL HISTORY: Hernia repair. PSYCHIATRIC HISTORY: None. SOCIAL HISTORY: Does report 1 pack a day smoker, reports marijuana use and drinks about a 6-pack weekly. KNOWN ALLERGIES: None. No known drug allergies. CURRENT HOME MEDICATIONS: 1. Atorvastatin 40 mg oral daily. 2. Lisinopril 40 mg oral daily. 3. Carvedilol 3.125 mg oral twice daily. 4. Aspirin 81 mg daily. PHYSICAL EXAMINATION: VITAL SIGNS: BP 141/72, respirations 16, pulse 78, temperature 99.4 degrees Fahrenheit, and O2 saturation 96% on room air. GENERAL: The patient is alert and oriented x3. No acute distress noted. HEENT: Atraumatic with a slight left-sided facial droop noted, this is currently his baseline since CVA last month. Pupils are round and reactive to light. Extraocular muscles intact. Oropharynx is clear without erythema or exudates. Uvula is midline. NECK: Soft, supple, and nontender. No bruit. CARDIOVASCULAR: Positive S1 and S2. Regular rate and rhythm. No significant murmur noted. PULMONARY: Clear to auscultation bilaterally. No wheeze. No rhonchi. No rales noted. ABDOMEN: Soft and nontender. Bowel sounds present. MUSCULOSKELETAL: Strength 5+ bilateral upper and lower extremities. Moves all extremities equal. No edema noted. NEUROLOGIC: Cranial nerves 2 through 12 grossly intact. Focal deficits noted. Speech is intact. Gait not assessed. PSYCHIATRIC: Good mood and affect. LABORATORY DATA: WBC 5.6, RBC 3.93, hemoglobin 12.3, platelet 235, and ESR 10. Sodium 140, potassium 3.5, anion gap 15, BUN 14, creatinine 0.88, estimated GFR greater than 90, and glucose 74. DIAGNOSTIC IMAGING: CT of brain without contrast showed no acute intracranial findings, chronic ischemic white matter changes due to microvascular atherosclerosis noted. CTA of brain showed no interval change overall since 06/05/2018. ASSESSMENT AND PLAN: 1. Hypertensive urgency, currently stable at this time. We will keep the patient on IV hydralazine as needed for an elevated blood pressure of greater than 180, we will also place on home medications including carvedilol 3.125 mg twice daily and lisinopril 40 mg daily. We will also consider adding low-dose clonidine as needed for elevated blood pressures prior to discharge. 2. Possible transient ischemic attack, check MRI of brain, continue the patient on aspirin and statin therapy. 3. History of hypertension, as above. 4. Chronic obstructive pulmonary disease, the patient currently stable. No further workup needed. We will monitor patient closely. 5. Tobacco and marijuana use, strongly encouraged smoking cessation, the patient verbalized his understanding. 6. Deep vein thrombosis and gastrointestinal prophylaxis. 7. Code status: Full code. DISPOSITION: Pending clinical findings and further workup. Job ID: [id number]
[2018-07-04] MEDS ORDERED: diphenhydrAMINE 25 MG CAP PO PRN (17:49)
--- NOTE | 2018-07-04 18:36 | MRI ---
MRI BRAIN NONCONTRAST: DATE: 07/04/2018 TIME: 4:46 p.m. HISTORY: A 67-year-old hypertensive male with dizziness. Rule out CVA. FINDINGS: The ventricles are normal in size and configuration. There is no restricted diffusion, midline shift or any other mass effect, recent intraaxial hemorrhage, or extraaxial fluid collection. There is a moderate degree of T2-hyperintensities in the cerebral white matter consistent with chronic ischemic white matter changes due to microvascular atherosclerosis. There is a tract of gliosis in the right frontal lobe, from the upper cortex to the anterior portion of the right lateral ventricle, representing the path of the previously removed ventriculostomy heydi ter. The T2 hyperintense, 1 cm, superficial, soft tissue mass, to the right side of the glabella, is benig n and unchanged. This could represent an epidermal inclusion cyst. There is an approximately 0.6 cm, round, extraaxial calcification abutting the left side of the anter ior interhemispheric falx, which is unchanged, perhaps representing a tiny burned-out calcified menin gioma. No adjacent vasogenic edema. Cavum septi pellucidi and the cavum vergae are again noted. There is severe disk space narrowing, somewhat severe bony hypertrophy, and irregularity of the endpl ates at C2-C3 and C3-C4 of the cervical spine. The levels inferior to that are not included on the i mages. The only interval change detected compared to the 06/04/2018 MRI, is the presence of a right mastoid effusion on the current MRI. IMPRESSION: 1. Moderate chronic ischemic white matter changes. 2. No acute infarction or any other acute intracranial findings. 3. Right frontal lobe tract from a previously removed ventriculostomy catheter. 4. Severe cervical spondylosis with multilevel very severe degenerative disk disease. 5. Right mastoid effusion. gi[] POS: RAFAL
[2018-07-04] MEDS: Atorvastatin Calcium 40 MG TAB PO SCH (20:25)
[2018-07-05] MEDS: Aspirin 81 mg Enteric Coated Tablet PO SCH (07:56)
[2018-07-05] MEDS: Heparin 5,000 UNITS/ML VIAL SC SCH ×3 (07:56→20:51)
[2018-07-05] MEDS: Carvedilol 3.125 MG TAB PO SCH ×2 (07:56→16:29)
[2018-07-05] MEDS: Lisinopril 20 MG TAB PO SCH (07:56)
[2018-07-05 08:37] LABS: Hemoglobin 12.5 g/dL (14.0-18.0); Mean Corpuscular Hemoglobin 30.1 pg (27.0-31.0); Mean Corpuscular Volume 94.1 fL (78.0-98.0); Mean Platelet Volume 8.1 fL (7.4-10.4); Platelet Count 250 thou/uL (130-400); RBC Distribution Width 12.4 % (11.5-14.5); Red Blood Cell (RBC) Count 4.15 mill/uL (4.70-6.10); White Blood Cell (WBC) Count 6.2 thou/uL (4.8-10.8)
[2018-07-05 08:47] LABS: Anion Gap 15 mmol/L (10-20); BUN (Urea Nitrogen) 16 mg/dL (8.4-25.7); Calc. Creatinine Clearance 60 mL/min (70-130); Calcium 9.1 mg/dL (7.8-10.44); Carbon Dioxide 19 mmol/L (23-31); Chloride 110 mmol/L (98-107); Estimated GFR-MDRD 88; Glucose 82 mg/dL (80-115); Potassium 3.7 mmol/L (3.5-5.1); Sodium 140 mmol/L (136-145)
[2018-07-05] MEDS: cloNIDine 0.1 MG TAB PO PRN (08:52)
[2018-07-05 09:33] LABS: Band 3 % (5-11); Eosinophils 2 % (0-10); Lymphocytes 26 % (21-51); MDiff Complete? YES; Monocytes 18 % (0-10); Neutrophil 50 % (42-75); Polychromasia SLIGHT = 2-3 cells (100X) (0-2/hpf); Reactive Lymphocytes 1 % (0-10)
[2018-07-05] MEDS: Acetaminophen 325 MG TAB PO PRN (10:23)
--- NOTE | 2018-07-05 16:16 | PDOC.PN ---
- Subjective Encounter Start Date: 07/05/18 Encounter Start Time: 16:00 Subjective: patient examined today, -: Hypertensive overnight and this am -: Denies any new complaints - Objective Resuscitation Status - Order Detail: 07/04/18 01:21 Resuscitation Status Routine Resuscitation Status: FULL: Full Resuscitation Vital Signs & Weight: Vital Signs (12 hours) Temp Pulse Resp BP BP Pulse Ox 07/05/18 12:10 98.7 F 70 16 128/74 95 07/05/18 09:51 168/86 H 07/05/18 08:52 185/97 H 07/05/18 07:54 98.7 F 76 16 194/93 H 96 07/05/18 04:20 99.2 F 82 13 170/81 H 95 Weight Weight 59.103 kg I&O: 07/04/18 07/05/18 07/06/18 06:59 06:59 06:59 Intake Total 180 1110 Output Total 1200 Balance 180 -90 Result Diagrams: 07/05/18 08:08 07/05/18 08:08 Phys Exam - Physical Examination HEENT: PERRLA, moist MMs Neck: no nodes, no JVD Respiratory: clear to auscultation bilateral Cardiovascular: RRR, no significant murmur Gastrointestinal: soft, non-tender Musculoskeletal: no edema, pulses present chronic left sided facial droop and left thumb numbness Lymphatic: no nodes Psychiatric: normal affect, A&O x 3 Skin: cap refill <2 seconds Dx/Plan (1) Hypertensive urgency Code(s): I16.0 - HYPERTENSIVE URGENCY Status: Acute (2) COPD (chronic obstructive pulmonary disease) Status: Chronic (3) Tobacco abuse Code(s): Z72.0 - TOBACCO USE Status: Chronic (4) History of CVA (cerebrovascular accident) Code(s): Z86.73 - PRSNL HX OF TIA (TIA), AND CEREB INFRC W/O RESID DEFICITS Status: Chronic - Plan cont current plan of care Will continue to monitor blood pressure which was elevated -: overnight and this morning despite multiple BP meds, including IV -: Recheck labs in AM and will monitor VS. -: Hypertensive urgency in context of recent CVA. * . Review of Systems - Review of Systems Other: residual left sided facial droop and decreased sensation to left thumb from CVA last month - Medications/Allergies Allergies/Adverse Reactions: Allergies Allergy/AdvReac Type Severity Reaction Status Date / Time No Known Allergies Allergy Verified 07/04/18 01:05 Medications: Current Medications Acetaminophen (Tylenol) 650 mg PO Q4H PRN PRN Reason: Headache/Fever/Mild Pain (1-3) Last Admin: 07/05/18 10:23 Dose: 650 mg Aspirin (Ecotrin) 81 mg PO DAILY [facility] Last Admin: 07/05/18 07:56 Dose: 81 mg Atorvastatin Calcium (Lipitor) 40 mg PO HS [facility] Last Admin: 07/04/18 20:25 Dose: 40 mg Bisacodyl (Dulcolax) 10 mg PO DAILYPRN PRN PRN Reason: Constipation Carvedilol (Coreg) 3.125 mg PO BID-[facility] Last Admin: 07/05/18 07:56 Dose: 3.125 mg Clonidine (Catapres) 0.1 mg PO Q4H PRN PRN Reason: Hypertension Last Admin: 07/05/18 08:52 Dose: 0.1 mg Diphenhydramine HCl (Benadryl) 25 mg PO Q6H PRN PRN Reason: Itching & Insomnia Last Admin: 07/04/18 17:55 Dose: 25 mg Heparin Sodium (Porcine) (Heparin) 5,000 units SC TID [facility] Last Admin: 07/05/18 14:28 Dose: 5,000 units Hydralazine HCl (Apresoline) 10 mg SLOW IVP Q4H PRN PRN Reason: Blood Pressure Last Admin: 07/04/18 20:25 Dose: 10 mg Lisinopril (Zestril) 40 mg PO DAILY [facility] Last Admin: 07/05/18 07:56 Dose: 40 mg Senna/Docusate Sodium (Senokot S) 2 tab PO BID PRN PRN Reason: Constipation
[2018-07-05] MEDS: Atorvastatin Calcium 40 MG TAB PO SCH (20:48)
[2018-07-06 05:42] LABS: Anion Gap 12 mmol/L (10-20); BUN (Urea Nitrogen) 16 mg/dL (8.4-25.7); Calc. Creatinine Clearance 65 mL/min (70-130); Calcium 8.9 mg/dL (7.8-10.44); Carbon Dioxide 22 mmol/L (23-31); Chloride 108 mmol/L (98-107); Estimated GFR-MDRD Greater than 90; Glucose 92 mg/dL (80-115); Potassium 3.6 mmol/L (3.5-5.1); Sodium 138 mmol/L (136-145)
[2018-07-06 05:46] LABS: Band 3 % (5-11); Eosinophils 3 % (0-10); Lymphocytes 49 % (21-51); MDiff Complete? YES; Mean Corpuscular Hemoglobin 31.2 pg (27.0-31.0); Mean Corpuscular Volume 94.4 fL (78.0-98.0); Mean Platelet Volume 7.9 fL (7.4-10.4); Monocytes 12 % (0-10); Neutrophil 33 % (42-75); Platelet Count 226 thou/uL (130-400); Platelet Morphology Comment Appears Adequate; RBC Distribution Width 12.3 % (11.5-14.5); Red Blood Cell (RBC) Count 3.86 mill/uL (4.70-6.10); White Blood Cell (WBC) Count 5.9 thou/uL (4.8-10.8)
[2018-07-06] MEDS: Aspirin 81 mg Enteric Coated Tablet PO SCH (08:01)
[2018-07-06] MEDS: Carvedilol 3.125 MG TAB PO SCH (08:01)
[2018-07-06] MEDS: Lisinopril 20 MG TAB PO SCH (08:01)
[2018-07-06] MEDS: Heparin 5,000 UNITS/ML VIAL SC SCH (08:02)
[2018-07-06] MEDS: cloNIDine 0.1 MG TAB PO PRN (11:42)
[2018-07-06 12:38] VITALS: TEMP 98.5
[2018-07-06 13:21] VITALS: BP 128/70
== END 2018-07-06 14:34 | disposition home or self-care (01) | DRG 305 ==
LOC: ERS 20:09 → 2SW 07-04 00:26 → OBSVTOIN 07-05 11:44
PROVIDERS: ADMIT Internal Medicine; ATTEND Internal Medicine
DX: I16.0 Hypertensive urgency (principal); J44.9 Chronic obstructive pulmonary disease, unspecified; I10 Essential (primary) hypertension; E78.5 Hyperlipidemia, unspecified; F12.90 Cannabis use, unspecified, uncomplicated; F17.210 Nicotine dependence, cigarettes, uncomplicated; Z86.73 Personal history of transient ischemic attack (TIA), and cerebral infarction without residual deficits; Z98.890 Other specified postprocedural states; Z79.82 Long term (current) use of aspirin; Z79.899 Other long term (current) drug therapy; Z71.6 Tobacco abuse counseling
CPT/HCPCS: 36415; 70450; 70496; 70498; 70551; 80048; 80053; 85025; 85652; 93005; 96374; J0360; J1644; Q0163; Q9966

== ENCOUNTER 2020-03-01 08:27 | Outpatient (CLI) | payer MEDICARE ==
--- NOTE | 2020-03-01 08:45 | RAD ---
XR Chest Pa Lat STANDARD HISTORY: Cough COMPARISON: 12/11/2019 FINDINGS: The heart size is normal. The lungs are well expanded without focal areas of consolidation, pneumothorax or pleural effusions. IMPRESSION: No radiographic evidence of acute cardiopulmonary process.
== END 2020-03-01 08:28 | disposition home or self-care (01) ==
LOC: BICRAD 08:27
PROVIDERS: ATTEND Family Medicine
DX: R05 Cough (principal)
CPT/HCPCS: 36415; 71046; 80053; 80061; 84443; 85025; G0103

== ENCOUNTER 2020-07-26 19:50 | Inpatient (IN) | payer MEDICARE ==
--- NOTE | 2020-07-26 20:49 | RAD ---
Portable frontal chest radiograph: 07/26/2020 COMPARISON: 03/01/2020 HISTORY: Syncope FINDINGS: No pneumothorax or pleural fluid. No focal consolidation or alveolar edema. Stable mild int erstitial prominence and stable prominence of the cardiac silhouette. IMPRESSION: No focal consolidation or alveolar edema.
--- NOTE | 2020-07-26 20:56 | CT ---
CT of thecervical spine: 07/26/2020 COMPARISON:None available HISTORY:Fall, trauma, pain TECHNIQUE: Serial axial CT imaging at1.25 mm intervals from theskull base through lung apices without contrast. Coronal and sagittal reformatted imaging obtained. Findings:There is mild linear interstitial density within bilateral lung apices. Subpleural emphysema tous changes are noted within bilateral lung apices. The occipital condyles, the dens, and the C1-2 articulation demonstrate no acute findings. There is p rominent degenerative change at the atlantoaxial interspace. There is degenerative endplate change with disc space narrowing and anterior osteophyte formation at the C2-3 through C6-7 level. No tylor listhesis or retrolisthesis is noted. No prevertebral soft tissue swelling. No acute fracture or dislocation. IMPRESSION: Multilevel cervical spine degenerative change. No acute fracture or dislocation.
--- NOTE | 2020-07-26 20:59 | CT ---
Head CT without contrast: 07/26/2020 COMPARISON: None HISTORY: Fall, trauma, pain TECHNIQUE: Axial CT imaging at 2.5 mm intervals from vertex through skull base without contrast. Kamryn nal and sagittal reformatted imaging obtained. FINDINGS: Stable periventricular hypodensity noted, evidence of small vessel disease. The visualized paranasal sinuses and mastoid air cells appear well-aerated. There is no displaced dustin varial fracture, intracranial hemorrhage, midline shift, or mass effect. IMPRESSION: No intracranial hemorrhage or displaced calvarial fracture.
--- NOTE | 2020-07-26 21:02 | CT ---
CT of the face: 07/26/2020 COMPARISON: None HISTORY: Fall, trauma, pain TECHNIQUE: Axial CT imaging at 2.5 mm intervals through the facial bones with coronal and sagittal re formatted imaging FINDINGS: The paranasal sinuses and mastoid air cells are well aerated. No displaced nasal bone fracture noted. The zygomatic arches and pterygoid plates appear intact. Neit her temporomandibular joint appears dislocated. No mandibular or maxillary fracture is evident. The orbital floor and medial orbital wall appears intact bilaterally. There is soft tissue irregularity involving the lower lip suggesting laceration. A punctate associate d foreign body is noted measuring 1 mm on axial image 52 within the soft tissues in the region of the lateral lower lip on the left. IMPRESSION: No displaced facial bone fracture.
[2020-07-26] MEDS ORDERED: Fentanyl 100 MCG/2 ML VIAL ONE (21:12)
[2020-07-26] MEDS ORDERED: Ondansetron PF 4 MG/2 ML Vial ONE (21:12)
[2020-07-26] MEDS ORDERED: Boostrix 0.5 ML (Tdap) VIAL ONE (21:12)
[2020-07-26 21:22] LABS: Bacteria/HPF 4+ HPF (None Seen); Bilirubin Negative (Negative); Blood, Urine 1+ (Negative); Clarity Clear (Clear); Glucose, Urine (Dipstick) Normal (Negative); Ketone, Urine Negative (Negative); Leukocyte 25 Leu/uL (Negative); Nitrite Negative (Negative); Protein, Urine (Dipstick) 70 mg/dL (Neg-Trace); RBC/HPF 0-3 HPF (0-3); Specific Gravity, Urine 1.018 (1.002-1.036); Squamous Epithelial 0-3 HPF (0-3); Urobilinogen Normal mg/dL (Less than 2)
[2020-07-26 21:22] LABS: #Eosinphils 0.1 thou/uL (0.0-0.7); #Monocytes 0.9 thou/uL (0.11-0.59); #Neutrophils 5.7 thou/uL (1.40-6.50); %Basophils 0.5 % (0.0-1.0); %Eosinophils 1.4 % (0.0-10.0); %Lymphocytes 22.3 % (21.0-51.0); %Neutrophils 65.7 % (42.0-75.0); Hemoglobin 14.4 g/dL (14.0-18.0); Mean Corpuscular HGB CONC 35.3 g/dL (32.0-36.0); Mean Corpuscular Volume 96.4 fL (78.0-98.0); Mean Platelet Volume 9.2 fL (7.4-10.4); Platelet Count 223 thou/uL (130-400); Red Blood Cell (RBC) Count 4.22 mill/uL (4.70-6.10); White Blood Cell (WBC) Count 8.7 thou/uL (4.8-10.8)
[2020-07-26 21:26] LABS: Acetaminophen Less than 6.0 mcg/mL (10.0-30.0); Alcohol Less than 10 mg/dL (Less than 10); CK (CPK) 416 U/L (30-200); Salicylate Less than 8.0 mg/dL (15.0-30.0)
[2020-07-26 21:27] LABS: ALT (SGPT) 13 U/L (8-55); AST (SGOT) 23 U/L (5-34); Alkaline Phosphatase 83 U/L (40-110); Anion Gap 14 mmol/L (10-20); BUN (Urea Nitrogen) 22 mg/dL (8.4-25.7); Bilirubin, Total 0.6 mg/dL (0.2-1.2); Calc. Creatinine Clearance 0 mL/min (70-130); Calcium 9.5 mg/dL (7.8-10.44); Carbon Dioxide 26 mmol/L (23-31); Chloride 108 mmol/L (98-107); Globulin 3.4 g/dL (2.4-3.5); Glucose 147 mg/dL (80-115); Potassium 4.8 mmol/L (3.5-5.1); Protein, Total 7.4 g/dL (5.8-8.1); Sodium 143 mmol/L (136-145)
[2020-07-26 21:31] LABS: Amphetamine Not Detected (NotDetected); Barbiturates Screen Not Detected (NotDetected); Benzodiazepine Screen Not Detected (NotDetected); Cocaine Metabolite Screen Not Detected (NotDetected); Medtox Control Line Valid? VALID (VALID); Medtox Reader # READER 4; Methadone Not Detected (NotDetected); Methamphetamine Not Detected (NotDetected); Opiate Screen Not Detected (NotDetected); Oxycodone Screen Not Detected (NotDetected); Phencyclidine (PCP) Not Detected (NotDetected); THC/Cannabinoid Screen Detected (NotDetected); Tricyclic Screen Not Detected (NotDetected)
[2020-07-26] MEDS ORDERED: cefTRIAXone\\ROCEPHIN 2 GM VIAL ONE (21:37)
[2020-07-26] MEDS ORDERED: Lidocaine 1% (PF) 30 ML VIAL ONE (21:47)
--- NOTE | 2020-07-27 00:18 | PDOC.HHP ---
Hospitalist HPI Syncope Allergies/Adverse Reactions: Allergy/AdvReac Type Severity Reaction Status Date / Time No Known Allergies Allergy Verified 08/26/19 17:06 Home Medications: Medication Instructions Recorded Confirmed Type Aspirin [Ecotrin Low Strength] 81 mg PO DAILY #30 tab 06/06/18 12/12/19 Rx Atorvastatin Calcium [Lipitor] 40 mg PO HS #30 tab 06/06/18 12/12/19 Rx Carvedilol [Coreg] 3.125 mg PO BID-WM #60 tab 06/06/18 12/12/19 Rx Ibuprofen [Advil] 400 mg PO PRN PRN 07/04/18 12/12/19 History cloNIDine HCl 0.1 mg PO BID #30 tablet 07/06/18 12/12/19 Rx Aspirin [Ecotrin Low Strength] 81 mg PO DAILY tab 12/13/19 Rx Lisinopril [Zestril] 40 mg PO DAILY #30 tablet 12/13/19 Rx Past History: PMHx: PSHx: FHx: Social: Hospitalist Results Result Diagrams: 07/26/20 20:58 07/26/20 20:58 Lab results: Laboratory Last Values WBC 8.7 thou/uL (4.8-10.8) 07/26/20 20:58 RBC 4.22 mill/uL (4.70-6.10) L 07/26/20 20:58 Hgb 14.4 g/dL (14.0-18.0) 07/26/20 20:58 Hct 40.7 % (42.0-52.0) L 07/26/20 20:58 MCV 96.4 fL (78.0-98.0) 07/26/20 20:58 MCH 34.0 pg (27.0-31.0) H 07/26/20 20:58 MCHC 35.3 g/dL (32.0-36.0) 07/26/20 20:58 RDW 12.0 % (11.5-14.5) 07/26/20 20:58 Plt Count 223 thou/uL (130-400) 07/26/20 20:58 MPV 9.2 fL (7.4-10.4) 07/26/20 20:58 Neutrophils % 65.7 % (42.0-75.0) 07/26/20 20:58 Lymphocytes % 22.3 % (21.0-51.0) 07/26/20 20:58 Monocytes % 10.0 % (0.0-10.0) 07/26/20 20:58 Eosinophils % 1.4 % (0.0-10.0) 07/26/20 20:58 Basophils % 0.5 % (0.0-1.0) 07/26/20 20:58 Neutrophils # 5.7 thou/uL (1.40-6.50) 07/26/20 20:58 Lymphocytes # 2.0 thou/uL (1.20-3.40) 07/26/20 20:58 Monocytes # 0.9 thou/uL (0.11-0.59) H 07/26/20 20:58 Eosinophils # 0.1 thou/uL (0.0-0.7) 07/26/20 20:58 Basophils # 0.0 thou/uL (0.0-0.2) 07/26/20 20:58 Sodium 143 mmol/L (136-145) 07/26/20 20:58 Potassium 4.8 mmol/L (3.5-5.1) 07/26/20 20:58 Chloride 108 mmol/L (98-107) H 07/26/20 20:58 Carbon Dioxide 26 mmol/L (23-31) 07/26/20 20:58 Anion Gap 14 mmol/L (10-20) 07/26/20 20:58 BUN 22 mg/dL (8.4-25.7) 07/26/20 20:58 Creatinine 1.66 mg/dL (0.7-1.3) H 07/26/20 20:58 Estimated GFR (MDRD) 50 07/26/20 20:58 Glucose 147 mg/dL (80-115) H 07/26/20 20:58 Calcium 9.5 mg/dL (7.8-10.44) 07/26/20 20:58 Total Bilirubin 0.6 mg/dL (0.2-1.2) 07/26/20 20:58 AST 23 U/L (5-34) 07/26/20 20:58 ALT 13 U/L (8-55) 07/26/20 20:58 Alkaline Phosphatase 83 U/L (40-110) 07/26/20 20:58 Creatine Kinase 416 U/L (30-200) H 07/26/20 20:58 CK-MB (CK-2) 4.0 ng/mL (0-6.6) 07/26/20 20:58 Troponin I 0.042 ng/mL (< 0.028) H 07/26/20 20:58 Serum Total Protein 7.4 g/dL (5.8-8.1) 07/26/20 20:58 Albumin 4.0 g/dL (3.4-4.8) 07/26/20 20:58 Globulin 3.4 g/dL (2.4-3.5) 07/26/20 20: Albumin/Globulin Ratio 1.2 g/dL (1.2-2.2) 07/26/20 20:58 Urine Color Yellow (Yellow) 07/26/20 21:02 Urine Clarity Clear (Clear) 07/26/20 21:02 Urine pH 6.0 (5.0-9.0) 07/26/20 21:02 Ur Specific [place] 1.018 (1.002-1.036) 07/26/20 21:02 Urine Protein 70 mg/dL (Neg-Trace) A 07/26/20 21:02 Urine Glucose (UA) Normal mg/dL (Negative) 07/26/20 21:02 Urine Ketones Negative mg/dL (Negative) 07/26/20 21:02 Urine Blood 1+ (Negative) A 07/26/20 21:02 Urine Nitrite Negative (Negative) 07/26/20 21: Urine Bilirubin Negative (Negative) 07/26/20 21:02 Urine Urobilinogen Normal mg/dL (Less than 2) 07/26/20 21:02 Ur Leukocyte Esterase 25 Blayne/uL (Negative) A 07/26/20 21:02 Urine RBC 0-3 HPF (0-3) 07/26/20 21:02 Urine WBC 7-10 HPF (0-3) A 07/26/20 21:02 Ur Squamous Epith Cells 0-3 HPF (0-3) 07/26/20 21:02 Urine Bacteria 4+ HPF (None Seen) A 07/26/20 21:02 Hyaline Casts 21-50 LPF (0-3) A 07/26/20 21:02 Salicylates Less than 8.0 mg/dL (15.0-30.0) L 07/26/20 20:58 Urine Opiates Screen Not Detected (NotDetected) 07/26/20 21:02 Ur Oxycodone Screen Not Detected (NotDetected) 07/26/20 21:02 Urine Methadone Screen Not Detected (NotDetected) 07/26/20 21:02 Ur Propoxyphene Screen Not Detected (NotDetected) 07/26/20 21:02 Acetaminophen Less than 6.0 mcg/mL (10.0-30.0) L 07/26/20 20:58 Ur Barbiturates Screen Not Detected (NotDetected) 07/26/20 21:02 Ur Tricyclics Screen Not Detected (NotDetected) 07/26/20 21:02 Ur Phencyclidine Scrn Not Detected (NotDetected) 07/26/20 21:02 Ur Amphetamines Screen Not Detected (NotDetected) 07/26/20 21:02 U Methamphetamines Scrn Not Detected (NotDetected) 07/26/20 21:02 U Benzodiazepines Scrn Not Detected (NotDetected) 07/26/20 21:02 U Cocaine Metab Screen Not Detected (NotDetected) 07/26/20 21:02 U Cannabinoids Screen Detected (NotDetected) H 07/26/20 21:02 Drug Screen Comment () 07/26/20 21:02 Plasma Alcohol Less than 10 mg/dL (Less than 10) 07/26/20 20:58
[2020-07-27] MEDS: Sodium Chloride 0.9% 1,000 ML IV SCH ×2 (00:26→09:11)
[2020-07-27 00:30] VITALS: BMI 22.1
[2020-07-27] MEDS ORDERED: Ondansetron PF 4 MG/2 ML Vial IVP PRN (00:30)
[2020-07-27] MEDS ORDERED: Acetaminophen 325 MG TAB PO PRN (00:30)
[2020-07-27] MEDS ORDERED: Ondansetron ODT 4 MG TAB SL PRN (00:30)
[2020-07-27 01:55] LABS: Troponin I 0.029 ng/mL (< 0.028)
[2020-07-27] MEDS ORDERED: cloNIDine 0.1 MG TAB PO SCH ×2 (02:30→21:00)
[2020-07-27] MEDS ORDERED: traMADol HCl 50 MG TAB ONE (02:39)
[2020-07-27] MEDS ORDERED: cloNIDine 0.1 MG TAB ONE (02:39)
[2020-07-27] MEDS: traMADol HCl 50 MG TAB PO PRN (02:42)
[2020-07-27] MEDS ORDERED: Labetalol HCl 100 MG/20 ML VIAL SLOW IVP PRN (03:27)
[2020-07-27] MEDS ORDERED: hydrALAZINE 20 MG/ML VIAL ONE (03:59)
[2020-07-27 04:36] LABS: #Basophils 0.1 thou/uL (0.0-0.2); #Lymphocytes 1.7 thou/uL (1.20-3.40); #Monocytes 1.2 thou/uL (0.11-0.59); #Neutrophils 6.5 thou/uL (1.40-6.50); %Basophils 0.6 % (0.0-1.0); %Eosinophils 0.5 % (0.0-10.0); %Lymphocytes 17.5 % (21.0-51.0); %Monocytes 12.4 % (0.0-10.0); Hemoglobin 11.8 g/dL (14.0-18.0); Mean Corpuscular HGB CONC 33.6 g/dL (32.0-36.0); Mean Corpuscular Hemoglobin 31.6 pg (27.0-31.0); Mean Corpuscular Volume 94.1 fL (78.0-98.0); Mean Platelet Volume 8.7 fL (7.4-10.4); Platelet Count 227 thou/uL (130-400); RBC Distribution Width 12.1 % (11.5-14.5); Red Blood Cell (RBC) Count 3.73 mill/uL (4.70-6.10); White Blood Cell (WBC) Count 9.5 thou/uL (4.8-10.8)
[2020-07-27 04:47] LABS: Anion Gap 12 mmol/L (10-20); BUN (Urea Nitrogen) 18 mg/dL (8.4-25.7); Calc. Creatinine Clearance 47 mL/min (70-130); Calcium 8.7 mg/dL (7.8-10.44); Carbon Dioxide 23 mmol/L (23-31); Chloride 110 mmol/L (98-107); Glucose 90 mg/dL (80-115); Potassium 3.8 mmol/L (3.5-5.1); Sodium 141 mmol/L (136-145)
[2020-07-27 04:51] LABS: Troponin I 0.033 ng/mL (< 0.028)
--- NOTE | 2020-07-27 05:08 | PDOC.HHP ---
Hospitalist HPI Syncope History of Present Illness: This is a 69-year-old male patient with a history of hypertension, stroke who presents to the ED on account of syncope and lip laceration. Patient notes that earlier in the day he got up to walk and he fell backwards. He did get up however he notes have fallen again later when he was walking forward biting his lips. He notified his son who activated EMS and brought him to the ED for further evaluation. Patient denies any prior symptoms of nausea vomiting diarrhea. This is his first episode of syncopal event. This event was unwitnessed as duration is quite unclear and patient cannot remember most of the details during the event. Continue with a had any seizure activity. On arrival blood pressure was 173/93, pulse 68, respiratory rate 14, temperature 97.9 and saturating 95% on room air. Labs showed CBC within normal limits, creatinine 1.61 from a baseline of 0.94 over a year ago. Urine showed elevated protein 25 leukocyte esterase 7-10 WBCs 4+ bacteria. Toxicology detected no alcohol however cannabis was positive. CT brain and CT lungs revealed no acute processes. Patient was started on antibiotics for coverage of UTI. Police team consulted for admission. Allergies/Adverse Reactions: Allergy/AdvReac Type Severity Reaction Status Date / Time No Known Allergies Allergy Verified 07/27/20 00:44 Home Medications: Medication Instructions Recorded Confirmed Type Aspirin [Ecotrin Low Strength] 81 mg PO DAILY #30 tab 06/06/18 12/12/19 Rx Atorvastatin Calcium [Lipitor] 40 mg PO HS #30 tab 06/06/18 12/12/19 Rx Carvedilol [Coreg] 3.125 mg PO BID-WM #60 tab 06/06/18 12/12/19 Rx Ibuprofen [Advil] 400 mg PO PRN PRN 07/04/18 12/12/19 History cloNIDine HCl 0.1 mg PO BID #30 tablet 07/06/18 12/12/19 Rx Aspirin [Ecotrin Low Strength] 81 mg PO DAILY tab 12/13/19 Rx Lisinopril [Zestril] 40 mg PO DAILY #30 tablet 12/13/19 Rx Past History: PMHx: Hypertension, stroke PSHx: None of significant FHx: Diabetes mellitus Social: 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 Smokes daily, occasional drinker. Uses marijuana Hospitalist HPI ROS Constitutional: denies: fever, chills, sweats, weakness ENT: denies: ear pain, ear discharge, nose pain, nose discharge, nose congestion Respiratory: denies: cough, dry, shortness of breath, hemoptysis, SOB with excertion Cardiovascular: denies: chest pain, palpitations, orthopnea, paroxysmal noc. dyspnea Gastrointestinal: denies: nausea, vomiting, abdominal pain, diarrhea Genitourinary: reports: dysuria, frequency. denies: incontinence, hematuria, retention Musculoskeletal: denies: neck pain, shoulder pain, arm pain Hospitalist Exam Vitals: Vital Signs (12 hours) BP 07/27/20 02:42 198/92 H Weight Weight 125 lb 0.034 oz General Appearance: awake alert General - other findings: In no acute distress, lip laceration sutured Eye: PERRL, anicteric sclera ENT: normocephalic atraumatic Heart: RRR, no murmur, no gallops, no rubs, normal peripheral pulses Respiratory: CTAB, no wheezes, no rales, no ronchi, normal chest expansion Gastrointestinal: soft, non-tender, non-distended, normal bowel sounds Extremities: no cyanosis, no clubbing, no edema Skin: normal turgor Neurological: cranial nerve grossly intact, no focal deficits, no new deficit Hospitalist Results Result Diagrams: 07/27/20 04:10 07/27/20 04:10 Lab results: Laboratory Last Values WBC 9.5 thou/uL (4.8-10.8) 07/27/20 04:10 RBC 3.73 mill/uL (4.70-6.10) L 07/27/20 04:10 Hgb 11.8 g/dL (14.0-18.0) L 07/27/20 04:10 Hct 35.1 % (42.0-52.0) L 07/27/20 04:10 MCV 94.1 fL (78.0-98.0) 07/27/20 04:10 MCH 31.6 pg (27.0-31.0) H 07/27/20 04:10 MCHC 33.6 g/dL (32.0-36.0) 07/27/20 04:10 RDW 12.1 % (11.5-14.5) 07/27/20 04:10 Plt Count 227 thou/uL (130-400) 07/27/20 04:10 MPV 8.7 fL (7.4-10.4) 07/27/20 04:10 Neutrophils % 69.0 % (42.0-75.0) 07/27/20 04:10 Lymphocytes % 17.5 % (21.0-51.0) L 07/27/20 04:10 Monocytes % 12.4 % (0.0-10.0) H 07/27/20 04:10 Eosinophils % 0.5 % (0.0-10.0) 07/27/20 04:10 Basophils % 0.6 % (0.0-1.0) 07/27/20 04:10 Neutrophils # 6.5 thou/uL (1.40-6.50) 07/27/20 04:10 Lymphocytes # 1.7 thou/uL (1.20-3.40) 07/27/20 04:10 Monocytes # 1.2 thou/uL (0.11-0.59) H 07/27/20 04:10 Eosinophils # 0.0 thou/uL (0.0-0.7) 07/27/20 04:10 Basophils # 0.1 thou/uL (0.0-0.2) 07/27/20 04:10 Sodium 141 mmol/L (136-145) 07/27/20 04:10 Potassium 3.8 mmol/L (3.5-5.1) 07/27/20 04:10 Chloride 110 mmol/L (98-107) H 07/27/20 04:10 Carbon Dioxide 23 mmol/L (23-31) 07/27/20 04:10 Anion Gap 12 mmol/L (10-20) 07/27/20 04:10 BUN 18 mg/dL (8.4-25.7) 07/27/20 04:10 Creatinine 1.23 mg/dL (0.7-1.3) 07/27/20 04:10 Estimated GFR (MDRD) 71 07/27/20 04:10 Glucose 90 mg/dL (80-115) 07/27/20 04:10 Calcium 8.7 mg/dL (7.8-10.44) 07/27/20 04:10 Total Bilirubin 0.6 mg/dL (0.2-1.2) 07/26/20 20:58 AST 23 U/L (5-34) 07/26/20 20:58 ALT 13 U/L (8-55) 07/26/20 20:58 Alkaline Phosphatase 83 U/L (40-110) 07/26/20 20:58 Creatine Kinase 416 U/L (30-200) H 07/26/20 20:58 CK-MB (CK-2) 4.0 ng/mL (0-6.6) 07/26/20 20:58 Troponin I 0.033 ng/mL (< 0.028) H 07/27/20 04:10 Serum Total Protein 7.4 g/dL (5.8-8.1) 07/26/20 20:58 Albumin 4.0 g/dL (3.4-4.8) 07/26/20 20:58 Globulin 3.4 g/dL (2.4-3.5) 07/26/20 20:58 Albumin/Globulin Ratio 1.2 g/dL (1.2-2.2) 07/26/20 20:58 Urine Color Yellow (Yellow) 07/26/20 21:02 Urine Clarity Clear (Clear) 07/26/20 21:02 Urine pH 6.0 (5.0-9.0) 07/26/20 21:02 Ur Specific [place] 1.018 (1.002-1.036) 07/26/20 21:02 Urine Protein 70 mg/dL (Neg-Trace) A 07/26/20 21:02 Urine Glucose (UA) Normal mg/dL (Negative) 07/26/20 21:02 Urine Ketones Negative mg/dL (Negative) 07/26/20 21:02 Urine Blood 1+ (Negative) A 07/26/20 21:02 Urine Nitrite Negative (Negative) 07/26/20 21:02 Urine Bilirubin Negative (Negative) 07/26/20 21:02 Urine Urobilinogen Normal mg/dL (Less than 2) 07/26/20 21:02 Ur Leukocyte Esterase 25 Blayne/uL (Negative) A 07/26/20 21:02 Urine RBC 0-3 HPF (0-3) 07/26/20 21:02 Urine WBC 7-10 HPF (0-3) A 07/26/20 21:02 Ur Squamous Epith Cells 0-3 HPF (0-3) 07/26/20 21:02 Urine Bacteria 4+ HPF (None Seen) A 07/26/20 21:02 Hyaline Casts 21-50 LPF (0-3) A 07/26/20 21:02 Salicylates Less than 8.0 mg/dL (15.0-30.0) L 07/26/20 20:58 Urine Opiates Screen Not Detected (NotDetected) 07/26/20 21:02 Ur Oxycodone Screen Not Detected (NotDetected) 07/26/20 21:02 Urine Methadone Screen Not Detected (NotDetected) 07/26/20 21:02 Ur Propoxyphene Screen Not Detected (NotDetected) 07/26/20 21:02 Acetaminophen Less than 6.0 mcg/mL (10.0-30.0) L 07/26/20 20:58 Ur Barbiturates Screen Not Detected (NotDetected) 07/26/20 21:02 Ur Tricyclics Screen Not Detected (NotDetected) 07/26/20 21:02 Ur Phencyclidine Scrn Not Detected (NotDetected) 07/26/20 21:02 Ur Amphetamines Screen Not Detected (NotDetected) 07/26/20 21:02 U Methamphetamines Scrn Not Detected (NotDetected) 07/26/20 21:02 U Benzodiazepines Scrn Not Detected (NotDetected) 07/26/20 21:02 U Cocaine Metab Screen Not Detected (NotDetected) 07/26/20 21:02 U Cannabinoids Screen Detected (NotDetected) H 07/26/20 21:02 Drug Screen Comment () 07/26/20 21:02 Plasma Alcohol Less than 10 mg/dL (Less than 10) 07/26/20 20:58 Hospitalist H&P A/P Plan: This is a 69-year-old male patient with a history of hypertension and stroke who presents with recurrent syncopal events reviewed.. Syncope Unclear etiology Check orthostatics monitor on telemetry Echocardiogram in a.m. UTI Continue on ceftriaxone Follow-up cultures modify as necessary. Hypertension BP stable Resume home BP medications once verified -Lip laceration Dressing on floor VT prophylaxisLovenox CODE STATUSfull code
[2020-07-27 05:11] LABS: SARS-CoV-2 PCR by NAA Not Detected (NotDetected)
[2020-07-27] MEDS ORDERED: diphenhydrAMINE 25 MG CAP ONE (06:17)
[2020-07-27] MEDS ORDERED: Enoxaparin Sodium 40 MG/0.4 ML SYRINGE ONE (09:04)
[2020-07-27] MEDS: Enoxaparin Sodium 40 MG/0.4 ML SYRINGE SC SCH (09:08)
--- NOTE | 2020-07-27 15:43 | PDOC.HOSPP ---
- Subjective Encounter Date: 07/27/20 Encounter Time: 15:41 Subjective: Patient currently has no complaints. He is awake and alert. He request to go home. - Objective Vital Signs & Weight: Vital Signs (12 hours) Temp Pulse Pulse Pulse Pulse Pulse Resp 07/27/20 12:12 68 07/27/20 12:05 69 74 78 69 07/27/20 08:00 98.8 F 76 18 BP BP BP BP BP BP BP 07/27/20 12:12 182/116 H 203/100 H 07/27/20 12:05 168/96 H 182/116 H 203/100 H 206/101 H 07/27/20 08:00 109/81 BP Pulse Ox Pulse Ox Pulse Ox Pulse Ox 07/27/20 12:12 168/96 H 07/27/20 12:05 96 91 L 92 L 07/27/20 08:00 100 Weight Weight 125 lb 0.034 oz Result Diagrams: 07/27/20 04:10 07/27/20 04:10 Hospitalist ROS - Medication Medications: Active Medications Generic Name Dose Route Start Last Admin Trade Name Freq PRN Reason Stop Dose Admin Enoxaparin Sodium 40 mg 07/27/20 09:00 07/27/20 09:08 Enoxaparin Sodium 40 Mg/0.4 Ml Syringe SC 40 mg 0900 CAMILO Administration Tramadol HCl 50 mg 07/27/20 02:30 07/27/20 02:42 Tramadol Hcl 50 Mg Tab PO 50 mg Q6H PRN Administration Moderate Pain (4-6) Hospitalist Exam Vitals: Vital Signs (12 hours) Temp Pulse Pulse Pulse Pulse Pulse Resp 07/27/20 12:12 68 07/27/20 12:05 69 74 78 69 07/27/20 08:00 98.8 F 76 18 BP BP BP BP BP BP BP 07/27/20 12:12 182/116 H 203/100 H 07/27/20 12:05 168/96 H 182/116 H 203/100 H 206/101 H 07/27/20 08:00 109/81 BP Pulse Ox Pulse Ox Pulse Ox Pulse Ox 07/27/20 12:12 168/96 H 07/27/20 12:05 96 91 L 92 L 07/27/20 08:00 100 Weight Weight 125 lb 0.034 oz General Appearance: NAD, awake alert Eye: anicteric sclera ENT - other findings: Sutured lip laceration Neck: supple, no JVD Heart: RRR, no murmur Respiratory: CTAB, no wheezes, no rales, no ronchi Gastrointestinal: soft, non-tender, non-distended, normal bowel sounds Extremities: no cyanosis, no edema Skin: normal turgor, no rashes Neurological: cranial nerve grossly intact, no weakness, no focal deficits Musculoskeletal: normal tone, normal strength Psychiatric: normal affect, normal behavior, A&O x 3 Hosp A/P (1) Syncope Code(s): R55 - SYNCOPE AND COLLAPSE Status: Acute (2) UTI (urinary tract infection) Status: Acute (3) Malignant hypertension Code(s): I10 - ESSENTIAL (PRIMARY) HYPERTENSION Status: Acute (4) CKD (chronic kidney disease) stage 3, GFR 30-59 ml/min Code(s): N18.3 - CHRONIC KIDNEY DISEASE, STAGE 3 (MODERATE) * DO NOT USE * Status: Chronic (5) History of CVA (cerebrovascular accident) Code(s): Z86.73 - PRSNL HX OF TIA (TIA), AND CEREB INFRC W/O RESID DEFICITS Status: Chronic (6) Marijuana use Code(s): F12.90 - CANNABIS USE, UNSPECIFIED, UNCOMPLICATED Status: Chronic (7) Tobacco abuse Code(s): Z72.0 - TOBACCO USE Status: Chronic (8) Elevated troponin Code(s): R77.8 - OTHER SPECIFIED ABNORMALITIES OF PLASMA PROTEINS Status: Acute - Plan Patient is not orthostatic but has severely elevated blood pressure. Troponin mildly elevated but trended flat suggesting demand leak. Aggressive blood pressure control. Continue home dose clonidine and Coreg. Continue lisinopril. Add amlodipine. Hydralazine as needed for BP spikes. Continue IV Rocephin for UTI. Follow urine culture. Echocardiogram is pending. Patient will need a stress test once his blood pressure has been adequately controlled. Cardiology consult
[2020-07-27] MEDS ORDERED: Amlodipine 5 MG TAB PO SCH (16:15)
[2020-07-27] MEDS: Carvedilol 3.125 MG TAB PO SCH (18:16)
[2020-07-27] MEDS ORDERED: cefTRIAXone\\ROCEPHIN 1 GM in Sodium Chloride 0.9% 100 ML IVPB SCH (22:00)
[2020-07-27] MEDS: Atorvastatin Calcium 40 MG TAB PO SCH (22:09)
[2020-07-28] MEDS: hydrALAZINE 20 MG/ML VIAL SLOW IVP PRN ×2 (00:47→19:49)
[2020-07-28] MEDS: traMADol HCl 50 MG TAB PO PRN ×2 (01:51→19:49)
[2020-07-28 04:31] LABS: #Eosinphils 0.1 thou/uL (0.0-0.7); #Lymphocytes 1.6 thou/uL (1.20-3.40); #Monocytes 1.2 thou/uL (0.11-0.59); #Neutrophils 5.8 thou/uL (1.40-6.50); %Basophils 0.4 % (0.0-1.0); %Eosinophils 0.9 % (0.0-10.0); %Lymphocytes 18.2 % (21.0-51.0); %Monocytes 13.7 % (0.0-10.0); %Neutrophils 66.8 % (42.0-75.0); Hemoglobin 12.6 g/dL (14.0-18.0); Mean Corpuscular HGB CONC 33.6 g/dL (32.0-36.0); Mean Corpuscular Hemoglobin 31.7 pg (27.0-31.0); Mean Corpuscular Volume 94.4 fL (78.0-98.0); Mean Platelet Volume 9.3 fL (7.4-10.4); Platelet Count 211 thou/uL (130-400); RBC Distribution Width 11.8 % (11.5-14.5); Red Blood Cell (RBC) Count 3.96 mill/uL (4.70-6.10); White Blood Cell (WBC) Count 8.7 thou/uL (4.8-10.8)
[2020-07-28 05:02] LABS: Anion Gap 13 mmol/L (10-20); BUN (Urea Nitrogen) 15 mg/dL (8.4-25.7); Calc. Creatinine Clearance 62 mL/min (70-130); Calcium 8.8 mg/dL (7.8-10.44); Carbon Dioxide 22 mmol/L (23-31); Chloride 105 mmol/L (98-107); Glucose 91 mg/dL (80-115); Potassium 3.7 mmol/L (3.5-5.1); Sodium 136 mmol/L (136-145)
[2020-07-28] MEDS ORDERED: Amlodipine 5 MG TAB PO SCH (09:00)
[2020-07-28] MEDS: Amlodipine 10 MG TAB PO SCH (09:42)
[2020-07-28] MEDS: Carvedilol 3.125 MG TAB PO SCH ×2 (09:43→17:29)
[2020-07-28] MEDS: Lisinopril 20 MG TAB PO SCH (09:43)
[2020-07-28] MEDS: Enoxaparin Sodium 40 MG/0.4 ML SYRINGE SC SCH (09:43)
--- NOTE | 2020-07-28 11:47 | PDOC.HOSPP ---
- Subjective Encounter Date: 07/28/20 Encounter Time: 11:45 Subjective: Patient currently has no complaint. He denies any dizziness or chest pain. He states he is eating well. Blood pressure readings remain high but better than yesterday. - Objective Vital Signs & Weight: Vital Signs (12 hours) Temp Pulse Resp BP BP Pulse Ox 07/28/20 09:42 72 07/28/20 08:00 99.4 F 72 20 166/85 H 97 07/28/20 04:21 98.5 F 69 18 168/74 H 95 07/28/20 04:00 98.9 F 90 20 177/80 H 95 07/28/20 00:47 198/92 H Weight Weight 125 lb 0.034 oz Result Diagrams: 07/28/20 04:12 07/28/20 04:12 Hospitalist ROS - Medication Medications: Active Medications Generic Name Dose Route Start Last Admin Trade Name Freq PRN Reason Stop Dose Admin Amlodipine Besylate 10 mg 07/28/20 09:00 07/28/20 09:42 Amlodipine 10 Mg Tab PO 10 mg DAILY CAMILO Administration Atorvastatin Calcium 40 mg 07/27/20 21:00 07/27/20 22:09 Atorvastatin Calcium 40 Mg Tab PO 40 mg HS CAMILO Administration Carvedilol 3.125 mg 07/27/20 17:00 07/28/20 09:43 Carvedilol 3.125 Mg Tab PO 3.125 mg BID-WM CAMILO Administration Enoxaparin Sodium 40 mg 07/27/20 09:00 07/28/20 09:43 Enoxaparin Sodium 40 Mg/0.4 Ml Syringe SC 40 mg 0900 CAMILO Administration Hydralazine HCl 10 mg 07/27/20 03:27 07/28/20 00:47 Hydralazine 20 Mg/Ml Vial SLOW IVP 0.5 mg Q4H PRN Administration SBP > 180 or DBP > 105 Ceftriaxone Sodium 1 gm/ 100 mls @ 200 mls/hr 07/27/20 22:00 07/28/20 00:46 Sodium Chloride IVPB 100 mls Q24HR CAMILO Administration Lisinopril 40 mg 07/28/20 09:00 07/28/20 09:43 Lisinopril 20 Mg Tab PO 40 mg DAILY CAMILO Administration Tramadol HCl 50 mg 07/27/20 02:30 02/21/21 01:51 Tramadol Hcl 50 Mg Tab PO 50 mg Q6H PRN Administration Moderate Pain (4-6) Hospitalist Exam Vitals: Vital Signs (12 hours) Temp Pulse Resp BP BP Pulse Ox 07/28/20 09:42 72 07/28/20 08:00 99.4 F 72 20 166/85 H 97 07/28/20 04:21 98.5 F 69 18 168/74 H 95 07/28/20 04:00 98.9 F 90 20 177/80 H 95 07/28/20 00:47 198/92 H Weight Weight 125 lb 0.034 oz General Appearance: NAD, awake alert Eye: anicteric sclera ENT - other findings: Sutured lip lacerations. Neck: no JVD Heart: RRR, no murmur Respiratory: CTAB, no wheezes, no rales Gastrointestinal: soft, non-tender, non-distended, normal bowel sounds Extremities: no cyanosis Skin: no lesions Neurological: cranial nerve grossly intact, no weakness, no focal deficits Musculoskeletal: normal tone, normal strength Psychiatric: normal affect, normal behavior, A&O x 3 Hosp A/P (1) Syncope Code(s): R55 - SYNCOPE AND COLLAPSE Status: Acute (2) UTI (urinary tract infection) Status: Acute (3) Malignant hypertension Code(s): I10 - ESSENTIAL (PRIMARY) HYPERTENSION Status: Acute (4) CKD (chronic kidney disease) stage 3, GFR 30-59 ml/min Code(s): N18.3 - CHRONIC KIDNEY DISEASE, STAGE 3 (MODERATE) * DO NOT USE * Status: Chronic (5) History of CVA (cerebrovascular accident) Code(s): Z86.73 - PRSNL HX OF TIA (TIA), AND CEREB INFRC W/O RESID DEFICITS Status: Chronic (6) Marijuana use Code(s): F12.90 - CANNABIS USE, UNSPECIFIED, UNCOMPLICATED Status: Chronic (7) Tobacco abuse Code(s): Z72.0 - TOBACCO USE Status: Chronic (8) Elevated troponin Code(s): R77.8 - OTHER SPECIFIED ABNORMALITIES OF PLASMA PROTEINS Status: Acute - Plan Patient is not orthostatic. Troponin mildly elevated but trended flat suggesting demand leak. Aggressive blood pressure control. Clonidine discontinued. Amlodipine increased to 10 mg daily. Continue Coreg and titrate. Continue lisinopril 40 mg daily. Hydralazine as needed for BP spikes. Urine culture: No growth. Blood cultures: No growth to date. Change antibiotics to oral Levaquin to complete 5 days of treatment. Echocardiogram is pending. Awaiting cardiology input. Patient will need a stress test once his blood pressure has been adequately controlled.
--- NOTE | 2020-07-28 17:05 | CON ---
DATE OF CONSULTATION: REASON FOR CONSULTATION: Syncope. PRIMARY HAT BLOCKING OPERATOR: Deejay Turner MD HISTORY OF PRESENT ILLNESS: Mr. Dixon is a 69-year-old gentleman who was seen by Dr. Deejay Turner in 2018 after having a CVA. At that time, LINQ was offered. Patient was not understanding further procedures. He has not been seen or evaluated since that time. He recently presented with syncope. He states he was smoking marijuana when he had no predisposing factors and had a syncopal event. He has a lip laceration. His EKG suggests deep T-waves waves. He is currently has been having no episodes of chest pain pressure. He does have a previous history of noncompliance. PAST MEDICAL HISTORY: Previous CVA, hypertension, hernia repair. HOME MEDICATIONS: 1. Carvedilol. 2. Aspirin. 3. Amlodipine. 4. Ibuprofen. ALLERGIES: NONE. REVIEW OF SYSTEMS: A 10-point review of systems is reviewed as above, otherwise negative. PHYSICAL EXAMINATION: VITAL SIGNS: Blood pressure 172/86, pulse 66, temperature 98.4. GENERAL: Patient is a pleasant gentleman who is in no acute distress. The patient appears their stated age. NEUROLOGIC: The patient is alert and oriented x3 with no focal neurologic deficits. HEENT: Sclerae without icterus. Mouth has moist mucous membranes with normal pallor. NECK: No JVD. Carotid upstroke brisk. No bruits bilaterally. LUNGS: Clear to auscultation with unlabored respirations. BACK: No scoliosis or kyphosis. CARDIAC: Regular rate and rhythm with normal S1 and S2. No S3 or S4 noted. No significant rubs, murmurs, thrills, or gallops noted throughout the precordium. PMI is not displaced. There is no parasternal heave. ABDOMEN: Soft, nontender, nondistended. No peritoneal signs present. No hepatosplenomegaly. No abnormal striae. EXTREMITIES: 2+ femoral and 2+ dorsalis pedis pulses. No cyanosis, clubbing, or edema. SKIN: No gross abnormalities. PERTINENT LABORATORY DATA: Hemoglobin 12.6, hematocrit 37.3, white blood cell count 8.7, platelet count 211. Echo Doppler shows LVEF 25% to 30%. IMPRESSION: 1. Recent syncope. 2. Previous cerebrovascular accident. 3. Substance abuse. RECOMMENDATIONS: Mr. Dixon appeared to have a syncopal event, likely cardiogenic in nature. Concern about VT. No significant changes noted on the monitor. Given the EKG changes that are felt to be new versus 2019 and a syncopal event with a low LVEF. We would recommend coronary angioplasty assess for any significant areas of ischemia. I discussed procedure in full detail with Mr. Dixon. Risks include not limited to the following: , stroke, OR, need for emergency surgery, loss of limb, bleeding, and infection, as well as a reaction to the dye causing kidney failure and needing long-term dialysis. I also discussed the risks of PCI to include all of the above including coronary dissection and perforation in addition to acute stent thrombosis and restenosis. All questions about the procedure were answered. Given the above, the patient agreed to proceed with coronary angiography and possible PCI. The patient would likely benefit from a LifeVest given recent syncope and low LVEF. Job ID: [id number]
[2020-07-28] MEDS: Atorvastatin Calcium 40 MG TAB PO SCH (19:50)
[2020-07-29] MEDS: traMADol HCl 50 MG TAB PO PRN (05:45)
[2020-07-29] MEDS: hydrALAZINE 20 MG/ML VIAL SLOW IVP PRN (05:45)
[2020-07-29] MEDS: Enoxaparin Sodium 40 MG/0.4 ML SYRINGE SC SCH (08:14)
[2020-07-29] MEDS: Carvedilol 3.125 MG TAB PO SCH ×2 (08:14→16:40)
[2020-07-29] MEDS: Lisinopril 20 MG TAB PO SCH (08:14)
[2020-07-29] MEDS: Amlodipine 10 MG TAB PO SCH (08:14)
--- NOTE | 2020-07-29 09:25 | PDOC.HOSPP ---
- Subjective Encounter Date: 07/29/20 Encounter Time: 14:00 Subjective: Patient refused his cardiac catheterization this morning. He is also refusing LifeVest. Patient denies any chest pain or other symptoms. - Objective Vital Signs & Weight: Vital Signs (12 hours) Temp Pulse Resp BP Pulse Ox 07/29/20 08:14 79 07/29/20 07:53 96 07/29/20 07:51 99.5 F 79 18 182/85 H 96 07/29/20 03:43 99.8 F H 79 14 192/86 H 96 07/29/20 00:00 71 185/88 H Weight Weight 123 lb 14.4 oz Result Diagrams: 07/28/20 04:12 07/28/20 04:12 Hospitalist ROS - Review of Systems Constitutional: denies: fever, chills Respiratory: denies: cough, shortness of breath Cardiovascular: denies: chest pain, palpitations Gastrointestinal: denies: nausea, vomiting, abdominal pain - Medication Medications: Active Medications Generic Name Dose Route Start Last Admin Trade Name Freq PRN Reason Stop Dose Admin Amlodipine Besylate 10 mg 07/28/20 09:00 07/29/20 08:14 Amlodipine 10 Mg Tab PO 10 mg DAILY CAMILO Administration Atorvastatin Calcium 40 mg 07/27/20 21:00 07/28/20 19:50 Atorvastatin Calcium 40 Mg Tab PO 40 mg HS CAMILO Administration Carvedilol 3.125 mg 07/27/20 17:00 07/29/20 08:14 Carvedilol 3.125 Mg Tab PO 3.125 mg BID- CAMILO Administration Enoxaparin Sodium 40 mg 07/27/20 09:00 07/29/20 08:14 Enoxaparin Sodium 40 Mg/0.4 Ml Syringe SC 40 mg 0900 CAMILO Administration Hydralazine HCl 10 mg 07/27/20 03:27 07/29/20 05:45 Hydralazine 20 Mg/Ml Vial SLOW IVP 10 mg Q4H PRN Administration SBP > 180 or DBP > 105 Levofloxacin 500 mg 07/29/20 06:00 07/29/20 05:45 Levofloxacin 500 Mg Tab PO 08/02/20 06:01 500 mg 0600 CAMILO Administration Lisinopril 40 mg 07/28/20 09:00 07/29/20 08:14 Lisinopril 20 Mg Tab PO 40 mg DAILY CAMILO Administration Tramadol HCl 50 mg 07/27/20 02:30 07/29/20 05:45 Tramadol Hcl 50 Mg Tab PO 50 mg Q6H PRN Administration Moderate Pain (4-6) Hospitalist Exam Vitals: Vital Signs (12 hours) Temp Pulse Resp BP Pulse Ox 07/29/20 08:14 79 07/29/20 07:53 96 07/29/20 07:51 99.5 F 79 18 182/85 H 96 07/29/20 03:43 99.8 F H 79 14 192/86 H 96 07/29/20 00:00 71 185/88 H Weight Weight 123 lb 14.4 oz General Appearance: NAD, awake alert ENT: moist mucosa Heart: RRR, no murmur, no gallops, no rubs Respiratory: CTAB, no wheezes, no rales, no ronchi Gastrointestinal: soft, non-tender, non-distended, normal bowel sounds Psychiatric: normal affect, normal behavior, A&O x 3 Hosp A/P - Plan (1) Syncope Code(s): R55 - SYNCOPE AND COLLAPSE Status: Acute (2) UTI (urinary tract infection) Status: Acute (3) Malignant hypertension Code(s): I10 - ESSENTIAL (PRIMARY) HYPERTENSION Status: Acute (4) CKD (chronic kidney disease) stage 3, GFR 30-59 ml/min Code(s): N18.3 - CHRONIC KIDNEY DISEASE, STAGE 3 (MODERATE) * DO NOT USE * Status: Chronic (5) History of CVA (cerebrovascular accident) Code(s): Z86.73 - PRSNL HX OF TIA (TIA), AND CEREB INFRC W/O RESID DEFICITS Status: Chronic (6) Marijuana use Code(s): F12.90 - CANNABIS USE, UNSPECIFIED, UNCOMPLICATED Status: Chronic (7) Tobacco abuse Code(s): Z72.0 - TOBACCO USE Status: Chronic (8) Elevated troponin Code(s): R77.8 - OTHER SPECIFIED ABNORMALITIES OF PLASMA PROTEINS Status: Acute - Plan Patient is not orthostatic. Troponin mildly elevated but trended flat suggesting demand leak. Aggressive blood pressure control. Clonidine discontinued. Amlodipine increased to 10 mg daily. Continue Coreg and titrate. Continue lisinopril 40 mg daily. Hydralazine as needed for BP spikes. Urine culture: No growth. Blood cultures: No growth to date. Change antibiotics to oral Levaquin to complete 5 days of treatment tomorrow. Echocardiogram with EF 25-30%. Patient is now refusing any further interventions. Both I and Dr. Turner have discussed this with him and warned him of consequences of possible arrhythmia such as ventricular tachycardia and even cardiac . Patient expresses understanding but is refusing further interventions. As a result we are discharging him home with his new blood pressure medications. He needs to follow-up with his primary care physician and with Dr. Turner as an outpatient should he change his mind about getting a cardiac catheterization and LifeVest placed.
--- NOTE | 2020-07-29 13:08 | PQF ---
Dear Dr. Bailey Date: 07/29/20 Please exercise your independent, professional judgment in responding to the clarification form. Clinical indicators are provided on the bottom of this form for your review. Please check appropriate box(es): HEART FAILURE: A. ACUITY [ ] Acute [ ] Acute on Chronic [X] Chronic B. TYPE: [X] Systolic / HFrEF [ ] Diastolic / HFpEF [ ] Combined Systolic / Diastolic [ ] Hypertensive Heart and Kidney disease [ ] Hypertensive Heart Disease [ ] Hypertensive Kidney Disease [ ] Other diagnosis [ ] Unable to determine In addition, please specify: Present on Admission (POA): [X] Yes [ ] No [ ] Unable to determine For continuity of documentation, please document condition throughout progress notes and discharge summary. Thank You. To be completed by CDI/Coding staff for physician review: CLINICAL INDICATORS - SIGNS / SYMPTOMS / LABS / RESULTS AND LOCATION IN EMR CARDIOLOGY JULIET-TATE 07/29: "ECHO DOPPLER SHOWS LVEF 25-30%" "INDICATIONS: SYNCOPE AND CHRONIC DIASTOLIC HF" RISKS FACTORS / RESULTS AND LOCATION IN EMR CKD 3 HYPERTENSION DRUG ABUSE (ER NOTE) DAILY SMOKER (ER NOTE) TREATMENTS / RESULTS AND LOCATION IN EMR LIFEVEST RECOMMENDED (JULIET- TATE 07/29) COREG (07/27-PRESENT) NORVASC (07/28-PRESENT) ZESTRIL (07/28-PRESENT) TELEMETRY MONITORING CDS Signature: Chiqui Cintron RN Phone #: [phone] Date: 07/29/20 This is a permanent part of the Medical Record [facility]
--- NOTE | 2020-07-29 14:32 | PDOC.DS.DS ---
Provider Date of Admission: 07/26/20 23:31 Date of Discharge: 07/29/20 Admitting Provider: Mika Allison MD Consultations: Cardiology (Dr. Zepeda and Dr. Turner) Primary Care Physician: Randolph Regalado [facility] Course: This is a 69-year-old F [place] male with a known history of congestive heart failure with low ejection fraction who came in with a syncopal episode. Patient has a history of noncompliance as well as drug use. He was evaluated by cardiology and a catheterization was recommended along with a LifeVest. There was concern that he may be having ventricular arrhythmias from his low ejection fraction and these could be life-threatening. Patient initially agreed to the cardiac catheterization however the day of the procedure he refused to go through with it. Patient also refused a LifeVest at that time. The contracts advisor and I both discussed this with the patient and warned him about the possibility of sudden cardiac , however patient reported that he still did not want to go through with the procedures. He was asymptomatic at the time of discharge is being discharged home with increased medicines for control of his blood pressure. Pertinent Studies: Echocardiogram 1. Ejection fraction 25 to 30% Resuscitation Status: 07/27/20 00:19 Resuscitation Status Routine Resuscitation Status: DNAR: NO Resuscitation Discussed with: Patient Lab Results: 07/28/20 04:12 07/28/20 04:12 Abnormal Lab Results - Last 48 hrs 07/28/20 04:12: Carbon Dioxide 22 L 07/28/20 04:12: RBC 3.96 L, Hgb 12.6 L, Hct 37.3 L, MCH 31.7 H, Lymphocytes % 18.2 L, Monocytes % 13.7 H, Monocytes # 1.2 H Microbiology - Entire Visit 07/27/20 14:45 Urine voided Urine Culture - Final NO GROWTH AT 48 HOURS 07/26/20 20:36 Venous blood - Right Hand Blood Culture - Preliminary NO GROWTH AT 48 HOURS 07/26/20 20:30 Venous blood - Left Arm Blood Culture - Preliminary NO GROWTH AT 48 HOURS Vitals: Vital Signs (12 hours) Temp Pulse Pulse Pulse Resp BP BP 07/29/20 13:18 78 74 203/93 H 180/78 H 07/29/20 12:00 98.0 F 71 18 02/22/21 08:14 79 07/29/20 07:53 07/29/20 07:51 99.5 F 79 18 07/29/20 03:43 99.8 F H 79 14 BP Pulse Ox 07/29/20 13:18 07/29/20 12:00 174/84 H 96 07/29/20 08:14 07/29/20 07:53 96 07/29/20 07:51 182/85 H 96 07/29/20 03:43 192/86 H 96 Weight Weight 123 lb 14.4 oz Physical Exam: The patient was seen and examined on the day of discharge. Problem Assessment: (1) Syncopeconcern for possible ventricular tachycardia Code(s): R55 - SYNCOPE AND COLLAPSE Status: Acute (2) UTI (urinary tract infection) Status: Acute (3) Malignant hypertension Code(s): I10 - ESSENTIAL (PRIMARY) HYPERTENSION Status: Acute (4) CKD (chronic kidney disease) stage 3, GFR 30-59 ml/min Code(s): N18.3 - CHRONIC KIDNEY DISEASE, STAGE 3 (MODERATE) * DO NOT USE * Status: Chronic (5) History of CVA (cerebrovascular accident) Code(s): Z86.73 - PRSNL HX OF TIA (TIA), AND CEREB INFRC W/O RESID DEFICITS Status: Chronic (6) Marijuana use Code(s): F12.90 - CANNABIS USE, UNSPECIFIED, UNCOMPLICATED Status: Chronic (7) Tobacco abuse Code(s): Z72.0 - TOBACCO USE Status: Chronic (8) Chronic systolic congestive heart failure with ejection fraction of 25 to 30% Plan of Treatment: Discharge home on increased blood pressure medications. Patient also had a urinalysis that looked infected although urine culture did grow back nothing. He is going to complete a 5-day course of antibiotics with 1 more day of Levaquin. Patient is to follow-up with his primary care physician and also to follow-up with the contracts advisor office should he change his mind about the cardiac catheterization and LifeVest. Time Spent in discharge related activities (mins): 30 Plan Prescriptions: Levofloxacin [Levaquin] 500 mg PO 0600 #1 tab Atorvastatin Calcium [Lipitor] 40 mg PO HS #30 tab Lisinopril 40 mg PO DAILY #30 tablet Amlodipine [Norvasc] 10 mg PO DAILY #30 tab Home Medications: Medication Instructions Recorded Confirmed Type Carvedilol [Coreg] 3.125 mg PO BID-WM #60 tab 06/06/18 07/27/20 Rx Ibuprofen [Advil] 400 mg PO PRN PRN 07/04/18 07/28/20 History Aspirin [Ecotrin Low Strength] 81 mg PO DAILY tab 12/13/19 07/27/20 Rx Amlodipine [Norvasc] 10 mg PO DAILY #30 tab 07/29/20 Rx Atorvastatin Calcium [Lipitor] 40 mg PO HS #30 tab 07/29/20 Rx Levofloxacin [Levaquin] 500 mg PO 0600 #1 tab 07/29/20 Rx Lisinopril 40 mg PO DAILY #30 tablet 07/29/20 Rx Allergies: No Known Allergies Allergy (Verified 07/27/20 00:44) Activity:: Activity as Tolerated Nourishment:: Heart Healthy Diet, Low Sodium Diet Therapies:: Not Applicable Equipment/Supplies:: Not Applicable IV Therapy:: Not Applicable Referrals: Deejay Turner MD [Active] - 3-4 Weeks Randolph Regalado MD [Primary Care Provider] - 7 Days Disposition: HOME Quality CORE MEASURES:: HF
[2020-07-29] MEDS ORDERED: hydrALAZINE 25 MG TAB PO SCH (16:15)
[2020-07-29 16:35] VITALS: TEMP 99.4
[2020-07-29] MEDS ORDERED: Carvedilol 3.125 MG TAB PO SCH (17:00)
--- NOTE | 2020-07-29 17:01 | PDOC.CPN ---
- Subjective Date: 07/29/20 Time: 12:15 Interval history: He denies any chest pain or SOB. He has not had any more syncope since admission. - Review of Systems General: denies: fever/chills, weight/appetite/sleep changes, night sweats, fatigue Respiratory: denies: cough, congestion, shortness of breath, exercise intolerance Cardiovascular: denies: chest pain, palpitation, edema, paroxysmal nocturnal dys pnea, orthopnea Gastrointestinal: denies: nausea, vomiting, diarrhea, constipation, abd pain, GI bleeding Musculoskeletal: denies: pain, tenderness, stiffness, swelling, arthritis/arthralgias Neurological: denies: numbness, syncope, seizure, weakness - Objective Allergies/Adverse Reactions: Allergies Allergy/AdvReac Type Severity Reaction Status Date / Time No Known Allergies Allergy Verified 07/27/20 00:44 Visit Medications: Current Medications Amlodipine Besylate (Amlodipine 10 Mg Tab) 10 mg PO DAILY [facility] Last Admin: 07/29/20 08:14 Dose: 10 mg Documented by: Atorvastatin Calcium (Atorvastatin Calcium 40 Mg Tab) 40 mg PO [facility] Last Admin: 07/28/20 19:50 Dose: 40 mg Documented by: Carvedilol (Carvedilol 3.125 Mg Tab) 3.125 mg PO BID-[facility] Last Admin: 07/29/20 16:40 Dose: 3.125 mg Documented by: Enoxaparin Sodium (Enoxaparin Sodium 40 Mg/0.4 Ml Syringe) 40 mg SC 0900 [facility] Last Admin: 07/29/20 08:14 Dose: 40 mg Documented by: Hydralazine HCl (Hydralazine 20 Mg/Ml Vial) 10 mg SLOW IVP Q4H PRN PRN Reason: SBP > 180 or DBP > 105 Last Admin: 07/29/20 05:45 Dose: 10 mg Documented by: Hydralazine HCl (Hydralazine 25 Mg Tab) 25 mg PO NOW [facility] Stop: 07/29/20 19:00 Last Admin: 07/29/20 16:39 Dose: 25 mg Documented by: Labetalol HCl (Labetalol Hcl 100 Mg/20 Ml Vial) 10 mg SLOW IVP Q4H PRN PRN Reason: Systolic BP > 180 Levofloxacin (Levofloxacin 500 Mg Tab) 500 mg PO 0600 [facility] Stop: 08/02/20 06:01 Last Admin: 07/29/20 05:45 Dose: 500 mg Documented by: Lisinopril (Lisinopril 20 Mg Tab) 40 mg PO DAILY CAMILO Last Admin: 07/29/20 08:14 Dose: 40 mg Documented by: Tramadol HCl (Tramadol Hcl 50 Mg Tab) 50 mg PO Q6H PRN PRN Reason: Moderate Pain (4-6) Last Admin: 07/29/20 05:45 Dose: 50 mg Documented by: Vital Signs & Weight: Vital Signs Temp Pulse Pulse Pulse Resp BP BP 07/29/20 16:39 72 07/29/20 16:30 99.4 F 72 18 07/29/20 13:18 78 74 203/93 H 180/78 H 07/29/20 12:00 98.0 F 71 18 07/29/20 08:14 79 07/29/20 07:53 07/29/20 07:51 99.5 F 79 18 BP Pulse Ox 07/29/20 16:39 07/29/20 16:30 186/86 H 97 07/29/20 13:18 07/29/20 12:00 174/84 H 96 07/29/20 08:14 07/29/20 07:53 96 07/29/20 07:51 182/85 H 96 Weight 123 lb 14.4 oz - Physical Exam General: alert & oriented x3 HEENT: mucus membranes moist Neck: supple neck Cardiac: regular rate and rhythm Lungs: clear to auscultation Neuro: grossly intact Abdomen: active bowel sounds Extremities: no edema Skin: clear Musculoskeletal: no pain - Labs Result Diagrams: 07/28/20 04:12 07/28/20 04:12 Troponin/CKMB CK-MB (CK-2) 4.0 ng/mL (0-6.6) 07/26/20 20:58 Troponin I 0.033 ng/mL (< 0.028) H 07/27/20 04:10 - Telemetry Sinus rhythms and dysrhythmias: sinus rhythm - Assessment/Plan Assessment/Plan: 1. Syncope 2. Severe new onset dilated Cardiomyopathy EF at 25-30% 3. Substance abuse 4. Non compliance. 5. Hx of CVA PLAN: - Again offered LINQ for cryptogenic CVA and he refused. - I also offered a [facility] to assess for ischemic CM and he refused. I explained to him that this was the best way to assess for a possible heart attack causing his heart to be so weak nd make him pass out. He understands and verbalizes understanding and still refuses. - I offered a lifevest as most likely it was VT or VF that made him have syncope and explained that it was a deadly rhythm that could kill him next time and need ed to be protected with a defibrilator or a lifevest and he understands and verbalized understanding of this and still refuses. He is very aware this is a deadly condition if left untreated, he just wants to be discharged from the hospital. - Hopefully he will follow up in 2-4 weeks to continue to discuss. - It would not be a good plan to start amiodarone until there is some sort of follow up and compliance from patient. - Would increase coreg to 6.25 mg BID. - May discharge home per patients wishes with medical management only. - High possibility of re admission and high possibility of since he continues to use marihuana and is non compliant.
[2020-07-29 19:14] VITALS: BP 168/82
--- NOTE | 2020-07-31 02:23 | PQF ---
Dear : Joshua Bailey Date 07/31/2020 Please exercise your independent, professional judgment in responding to the clarification form. Clinical indicators are provided on the bottom of this form for your review Can you please further clarify the diagnosis of the patient? Please check appropriate box(es): [ ] Type 1 AK (NSTEMI) [ X ] Type 2 AK (T2MI) secondary to please specify: ___substance abuse and cardiomyopathy [ ] Other diagnosis please specify [ ] Unable to determine In addition can you please further clarify the etiology of syncope? [ X ] Dilated Cardiomyopathy [ ] UTI [ ] Syncope of unknown etiology [ ] Other diagnosis please specify [ ] Unable to determine Physician Signature: Date/Time: For continuity of documentation, please document condition throughout progress notes and discharge summary. Thank You. To be completed by CDI/Coding staff for physician review: Present Clinical Indicators - Signs / Symptoms / Labs Results and Location in Medical Record [ x ] ST Segment normal ED Provider pg.3 [ x ] Syncopal episodes prior arrival ED Provider pg.3 [ x ] Elevated troponin ED Provider pg.4 [ x ] Troponin: 0.042H, 0.029H, 0.033H Laboratory [ x ] Patient was started on antibiotics for coverage of UTI H and P pg.1 [ x ] Syncope unclear etiology H and P pg.5 [ x ] Troponin mildly elevated but trended flat suggesting demand leak Hospitalist PN pg.4 [ x ] Severe new onset dilated cardiomyopathy EF at 25-30% Cardiology PN pg.3 07/29 Present Risk Factors Results and Location in Medical Record [ x ] 69 years old H and P pg.1 [ x ] HTN H and P pg.1 [ x ] UTI H and P pg.5 [ x ] Substance abuse Consult pg.2 [ x ] CHF DS pg.1 [ x ] Smoker ED Notes 07/26 [ x ] CKD stage 3 PN 07/27 Present Treatments Results and Location in Medical Record [ x ] Cardiac consult Dr. Zepeda 07/28 [ x ] Check orthostatics monitor H and P pg.5 [ x ] Echocardiogram Echocardiogram 07/28 [ x ] IV Fluids MAR [ x ] Aspirin 81mg PO MAR [ x ] Rocephin 2gm IV MAR [ x ] Catapres 0.1mg PO AUG [ x ] Lovenox 40mg Subcu AUG 06 [facility] Medical Assistant Signature: Darryl Jeronimo Phone #: ext [phone] Date 07/31/2020 This is a permanent part of the Medical Record [facility]
== END 2020-07-29 18:15 | disposition home or self-care (01) | DRG 281 ==
LOC: ERS 19:50 → ERHOLD 23:31 → 2NO 07-27 17:26
PROVIDERS: ADMIT Student in an Organized Health Care Education/Training Program; ATTEND Emergency Medicine
DX: I42.0 Dilated cardiomyopathy (principal); I21.A1 Myocardial infarction type 2; I50.22 Chronic systolic (congestive) heart failure; N39.0 Urinary tract infection, site not specified; I13.0 Hypertensive heart and chronic kidney disease with heart failure and stage 1 through stage 4 chronic kidney disease, or unspecified chronic kidney disease; I47.2 Ventricular tachycardia; Z66 Do not resuscitate; Z20.822 Contact with and (suspected) exposure to COVID-19; Z53.29 Procedure and treatment not carried out because of patient's decision for other reasons; W19.XXXA Unspecified fall, initial encounter; N18.30 Chronic kidney disease, stage 3 unspecified; S01.511A Laceration without foreign body of lip, initial encounter; F17.210 Nicotine dependence, cigarettes, uncomplicated; F12.10 Cannabis abuse, uncomplicated; Z86.73 Personal history of transient ischemic attack (TIA), and cerebral infarction without residual deficits; Z79.899 Other long term (current) drug therapy
CPT/HCPCS: 12053; 36415; 70450; 70486; 71045; 72125; 80048; 80053; 80306; 80307; 81003; 81015; 82550; 82553; 84484; 85025; 87040; 87086; 87635; 90471; 90715; 93005; 93306; 96365; 96375; J0360; J0696; J1650; J2001; J2405; J3010; J3490; Q0163; U0003; U0005

== ENCOUNTER 2021-01-15 07:19 | Outpatient (CLI) | payer MEDICARE ==
[2021-01-15] MEDS ORDERED: Iopamidol-370 76% 500 ML 1 ML ONE (11:22)
== END 2021-01-15 07:20 | disposition home or self-care (01) ==
LOC: BICULT 07:19
PROVIDERS: ATTEND Family Medicine
DX: Z12.2 Encounter for screening for malignant neoplasm of respiratory organs (principal); Z13.6 Encounter for screening for cardiovascular disorders; F17.200 Nicotine dependence, unspecified, uncomplicated; I65.21 Occlusion and stenosis of right carotid artery; J44.9 Chronic obstructive pulmonary disease, unspecified; I25.10 Atherosclerotic heart disease of native coronary artery without angina pectoris; J98.09 Other diseases of bronchus, not elsewhere classified
CPT/HCPCS: 70498; 71271; 76775; 82565; Q9967

== ENCOUNTER 2022-04-16 11:35 | Observation (INO) | payer MEDICARE ==
[2022-04-16 12:40] LABS: #Eosinphils 0.1 thou/uL (0.0-0.7); #Lymphocytes 1.6 thou/uL (1.20-3.40); #Monocytes 0.6 thou/uL (0.11-0.59); #Neutrophils 4.5 thou/uL (1.40-6.50); %Basophils 0.6 % (0.0-1.0); %Lymphocytes 23.4 % (21.0-51.0); %Monocytes 8.6 % (0.0-10.0); %Neutrophils 66.4 % (42.0-75.0); Mean Corpuscular HGB CONC 33.7 g/dL (32.0-36.0); Mean Corpuscular Hemoglobin 31.2 pg (27.0-31.0); Mean Corpuscular Volume 92.6 fl (78.0-98.0); Mean Platelet Volume 9.1 fL (7.4-10.4); Platelet Count 200 10x3/uL (130-400); RBC Distribution Width 12.4 % (11.5-14.5); Red Blood Cell (RBC) Count 4.16 mill/uL (4.70-6.10); White Blood Cell (WBC) Count 6.8 10x3/uL (4.8-10.8)
[2022-04-16 13:17] LABS: ALT (SGPT) 9 U/L (8-55); Albumin 3.5 g/dL (3.4-4.8); Alkaline Phosphatase 76 U/L (40-110); BUN (Urea Nitrogen) 27 mg/dL (8.4-25.7); Bilirubin, Total 0.8 mg/dL (0.2-1.2); Calc. Creatinine Clearance 0 mL/min (70-130); Calcium 8.9 mg/dL (7.8-10.44); Carbon Dioxide 18 mmol/L (23-31); Chloride 103 mmol/L (98-107); Estimated GFR 43; Glucose 80 mg/dL (80-115); Sodium 135 mmol/L (136-145)
[2022-04-16 13:23] LABS: Globulin 2.7 g/dL (2.4-3.5); Potassium 3.9 mmol/L (3.5-5.1); Protein, Total 6.2 g/dL (5.8-8.1)
[2022-04-16 13:24] LABS: Anion Gap 18 mmol/L (10-20)
[2022-04-16 13:26] LABS: AST (SGOT) 12 U/L (5-34); Alcohol Less than 10 mg/dL (Less than 10)
[2022-04-16 13:36] LABS: Acetaminophen Less than 10.0 mcg/mL (10.0-30.0); Salicylate Less than 8.0 mg/dL (15.0-30.0)
[2022-04-16] MEDS ORDERED: hydrALAZINE 20 MG/ML VIAL ONE (14:20)
[2022-04-16 14:34] LABS: Bilirubin Negative (Negative); Blood, Urine Negative (Negative); Clarity Turbid (Clear); Glucose, Urine (Dipstick) Normal (Negative); Ketone, Urine Negative (Negative); Leukocyte 75 Leu/uL (Negative); Nitrite Negative (Negative); Protein, Urine (Dipstick) 50 mg/dL (Neg-Trace); RBC/HPF 0-3 HPF (0-3); Specific Gravity, Urine 1.016 (1.002-1.036); Squamous Epithelial 0-3 HPF (0-3); Urobilinogen Normal mg/dL (Less than 2); pH, Urine 5.5 (5.0-9.0)
[2022-04-16 14:38] LABS: Bacteria/HPF 1+ HPF (None Seen)
[2022-04-16 14:40] LABS: Amphetamine Not Detected (NotDetected); Barbiturates Screen Not Detected (NotDetected); Benzodiazepine Screen Not Detected (NotDetected); Cocaine Metabolite Screen Detected (NotDetected); Methadone Not Detected (NotDetected); Methamphetamine Not Detected (NotDetected); Opiate Screen Not Detected (NotDetected); Oxycodone Screen Not Detected (NotDetected); Phencyclidine (PCP) Not Detected (NotDetected); THC/Cannabinoid Screen Detected (NotDetected); Tricyclic Screen Not Detected (NotDetected)
[2022-04-16] MEDS ORDERED: cefTRIAXone\\ROCEPHIN 1 GM VIAL ONE (15:03)
[2022-04-16 15:39] LABS: Lactic Acid 2.4 mmol/L (0.5-2.2)
[2022-04-16] MEDS ORDERED: HYDROcodone/Acetaminophen 5/325 mg Tablet PO PRN (15:40)
[2022-04-16] MEDS ORDERED: Acetaminophen 325 MG TAB PO PRN (15:40)
[2022-04-16 16:59] VITALS: BMI 20.5
[2022-04-16] MEDS: Sodium Chloride 0.9% 1,000 ML IV SCH (17:02)
[2022-04-17] MEDS: Sodium Chloride 0.9% 1,000 ML IV SCH (04:23)
[2022-04-17 04:57] LABS: #Eosinphils 0.1 thou/uL (0.0-0.7); #Lymphocytes 1.8 thou/uL (1.20-3.40); #Monocytes 0.8 thou/uL (0.11-0.59); #Neutrophils 3.2 thou/uL (1.40-6.50); %Basophils 0.4 % (0.0-1.0); %Eosinophils 1.7 % (0.0-10.0); %Lymphocytes 30.8 % (21.0-51.0); %Neutrophils 53.2 % (42.0-75.0); Hemoglobin 11.4 g/dL (14.0-18.0); Mean Corpuscular HGB CONC 32.5 g/dL (32.0-36.0); Mean Corpuscular Hemoglobin 30.7 pg (27.0-31.0); Mean Corpuscular Volume 94.5 fl (78.0-98.0); Mean Platelet Volume 8.7 fL (7.4-10.4); Platelet Count 239 10x3/uL (130-400); RBC Distribution Width 12.4 % (11.5-14.5); Red Blood Cell (RBC) Count 3.71 mill/uL (4.70-6.10); White Blood Cell (WBC) Count 5.9 10x3/uL (4.8-10.8)
[2022-04-17 05:46] LABS: Anion Gap 10 mmol/L (10-20); BUN (Urea Nitrogen) 21 mg/dL (8.4-25.7); Calc. Creatinine Clearance 42 mL/min (70-130); Calcium 8.7 mg/dL (7.8-10.44); Carbon Dioxide 21 mmol/L (23-31); Chloride 112 mmol/L (98-107); Estimated GFR 62; Glucose 71 mg/dL (80-115); Potassium 3.9 mmol/L (3.5-5.1); Sodium 139 mmol/L (136-145)
[2022-04-17] MEDS ORDERED: hydrALAZINE 25 MG TAB PO SCH (09:00)
[2022-04-17] MEDS ORDERED: Carvedilol 6.25 MG TAB PO SCH (09:00)
[2022-04-17] MEDS ORDERED: Amlodipine 10 MG TAB PO SCH (09:15)
[2022-04-17 12:47] VITALS: BP 180/81; TEMP 97.9
[2022-04-17] MEDS ORDERED: cefTRIAXone\\ROCEPHIN 1 GM in Sodium Chloride 0.9% 100 ML IVPB SCH (15:00)
== END 2022-04-17 14:29 | disposition home or self-care (01) ==
LOC: ERS 11:35 → 2SW 16:19
PROVIDERS: ADMIT Internal Medicine; ATTEND Internal Medicine
DX: R55 Syncope and collapse (principal); N39.0 Urinary tract infection, site not specified; E87.20 Acidosis, unspecified; I13.0 Hypertensive heart and chronic kidney disease with heart failure and stage 1 through stage 4 chronic kidney disease, or unspecified chronic kidney disease; N18.9 Chronic kidney disease, unspecified; I50.20 Unspecified systolic (congestive) heart failure; N17.9 Acute kidney failure, unspecified; F17.210 Nicotine dependence, cigarettes, uncomplicated; I08.3 Combined rheumatic disorders of mitral, aortic and tricuspid valves; R00.1 Bradycardia, unspecified; Z66 Do not resuscitate; Z86.73 Personal history of transient ischemic attack (TIA), and cerebral infarction without residual deficits; Z79.899 Other long term (current) drug therapy; Z20.822 Contact with and (suspected) exposure to COVID-19
CPT/HCPCS: 71045; 80048; 80053; 80306; 80307; 83605; 84484; 85025 ×2; 93005; 93306; G0378 ×3; U0003; U0005; 36415; 81003; 81015; J0360; J0696; J7050

== ENCOUNTER 2022-08-12 07:27 | Emergency (ER) | payer MEDICARE ==
[2022-08-12] MEDS ORDERED: Lidocaine 1% w/Epinephrine 1:100K 20 ML VIAL ONE (09:13)
== END 2022-08-12 09:59 | disposition home or self-care (01) ==
LOC: ERS 07:27
DX: L02.01 Cutaneous abscess of face (principal); I10 Essential (primary) hypertension; F17.210 Nicotine dependence, cigarettes, uncomplicated; Z79.82 Long term (current) use of aspirin; Z79.899 Other long term (current) drug therapy
CPT/HCPCS: 10060; 36416; 87070; 87077; 87186; 87205

== ENCOUNTER 2022-09-16 10:37 | Emergency (ER) | payer MEDICARE | END 2022-09-16 14:44 | disposition home or self-care (01) | LOC: ERS 10:37 | DX: F19.90 Other psychoactive substance use, unspecified, uncomplicated (principal); I10 Essential (primary) hypertension; F17.210 Nicotine dependence, cigarettes, uncomplicated | CPT/HCPCS: 99284 ==

== ENCOUNTER 2022-12-02 11:00 | Emergency (ER) | payer MEDICARE | END 2022-12-02 11:57 | disposition home or self-care (01) | LOC: ERS 11:00 | DX: Z76.0 Encounter for issue of repeat prescription (principal) | CPT/HCPCS: 99281 ==